=== PATIENT | female | born 1990 | race African-American/Black ===

== ENCOUNTER 2023-02-03 11:14 | Outpatient (CLI) | payer OTHER, SELFPAY ==
[2023-02-03 11:56] LABS: Basophils Absolute Auto 0.1 K/mm3 (0.0-0.1); Basophils Percent Auto 0.9 % (0.2-1.2); Eosinophils Absolute Auto 0.2 K/mm3 (0-0.3); Eosinophils Percent Auto 2.4 % (0-4.4); Hemoglobin 13.4 g/dL (12.0-15.0); Immature Granulocyte Absolute 0.02 K/mm3 (0.00-0.031); Immature Granulocyte Percent A 0.3 % (0-0.5); Immature Platelet Fraction Pct 20.4 % (0.9-11.2); Lymphocytes Absolute Auto 2.22 K/mm3 (0.9-3.2); Mean Corpuscular HGB Conc 31.2 g/dl (32-36); Mean Corpuscular Hemoglobin 28.6 pg (26-34); Mean Corpuscular Volume 91.9 fl (80-100); Mean Platelet Volume 13.8 fl (7.4-10.4); Monocytes Absolute Auto 0.5 K/mm3 (0.1-0.6); Monocytes Percent Auto 6.8 % (2.6-8.5); Neutrophils Absolute Auto 3.8 K/mm3 (1.3-6.7); Neutrophils Percent Auto 56.6 % (45.5-73.1); Platelet Count Result 188 k/mm3 (150-375); Red Blood Count 4.68 M/mm3 (4.2-5.4); Red Cell Distribution Width 13.2 % (11.5-14.5); White Blood Count 6.7 K/mm3 (4.5-10.0)
[2023-02-03 12:01] LABS: Alanine Aminotransferase 18 U/L (6-35); Albumin Level 4.7 g/dL (3.5-5.1); Alkaline Phosphatase 94 U/L (38-126); Anion Gap 9 mmol/L (8-16); Aspartate Amino Transferase 29 U/L (14-36); Bilirubin,Total 0.4 mg/dL (0.2-1.3); Blood Urea Nitrogen 8 mg/dL (7-17); Calcium 9.4 mg/dL (8.4-10.2); Carbon Dioxide 24 mmol/L (22-30); Chloride 103 mmol/L (98-107); Estimated Glomerular Filt Rate > 60; Glucose 90 mg/dL (65-110); Sodium 136 mmol/L (137-145)
[2023-02-03 12:28] LABS: Vitamin D 25 Hydroxy 30.3 ng/mL
[2023-02-03 12:40] LABS: Rubella IgG Antibody 4.8 IU/ML
[2023-02-03 12:41] LABS: HIV 1/2 Ab P24 Ag Result Negative (Negative)
[2023-02-03 13:50] LABS: Rapid Plasma Reagin Non-Reactive (NonReactive)
== END 2023-02-03 11:15 | disposition home or self-care (01) ==
PROVIDERS: Visit Provider Obstetrics & Gynecology
DX: Z31.69 Encounter for other general counseling and advice on procreation (principal)
CPT/HCPCS: 36415; 80053; 82306; 84443; 85025; 85055; 86592; 86703; 86762; 86787; 86850; 86900; 86901; G0432

== ENCOUNTER 2023-04-05 16:44 | Emergency (ER) | payer OTHER, SELFPAY ==
--- NOTE | ~2023-04-05 | US_ITS ---
CORRECTED REPORT exam description change [facility] [place] 04/06/23 This report was recreated on 04/06/23. Original report was EXAMINATION: US OB <= 14 weeks fetus w TV INDICATION: pelvic pain TECHNIQUE: Sonography of the pelvis was performed by transabdominal and transvaginal techniques. COMPARISON: None. RESULT: Uterus: 8.7 x 5.0 x 5.3 cm. Anteverted. Homogenous myometrium. Intrauterine gestational sac: Single present. Mean Sac Diameter: 1.26 cm, corresponding gestational age 6 week 1 days. Yolk sac: 0.4 cm . Embryo: Not seen. Subgestational hematoma: Absent . Right ovary: 4.2 x 2.5 x 3.4 cm. Vascular flow is present. Involuting corpus luteal cyst. Left ovary: 2.8 x 1.7 x 1.8 cm. Vascular flow is present. No adnexal mass. Pelvis free fluid: Small free fluid is likely physiologic. IMPRESSION: Single, intrauterine gestation. No pole identified at this time. Estimated Gestational Age: 6 weeks, 1 days by mean gestational sac diameter. EVON by ultrasound 11/28/2023. Reviewed, dictated and finalized at location K. MTDD IMPRESSION: Single, intrauterine gestation. No pole identified at this time. Estimated Gestational Age: 6 weeks, 1 days by mean gestational sac diameter. E DD by ultrasound 11/28/2023.
[2023-04-05 16:50] VITALS: BP 130/54; PULSE 100; RESP 18; TEMP 36.6; O2SAT 100
--- NOTE | 2023-04-05 18:30 | ED.BACK ---
HPI - Back Pain/Injury General Chief Complaint: Back Pain/Injury Stated Complaint: lower back pain, lower left pelvic pain Time Seen by Provider: 04/05/23 18:15 History of Present Illness HPI Narrative: Patient is a 32-year-old female, approximately 5 weeks by LMP of 02/24 here with multiple symptoms including lower abdominal pain, left adnexal pain and lower back pain. She notes that symptoms began a few days ago, seemed to be worsening. The pain seems to be worse on the left lower abdomen. She denies any associated vaginal bleeding. She notes she has had some clear vaginal discharge which seems to be her normal. No concern for STD. She endorses that abdominal pain seems to be cramping in nature. She has taken nothing at home for the pain. She note some increased urinary frequency, denies hematuria or dysuria. She denies complaining of some bilateral lower back pain. No red flag symptoms. No fever or chills. No trauma. she has called to schedule 1st trimester appointment with her OBGYN but has not been seen or had a 1st trimester ultrasound to this point. Related Data Allergies Allergy/AdvReac Type Severity Reaction Status Date / Time No Known Allergies Allergy Verified 02/03/23 10:15 Review of Systems Review of Systems: All systems reviewed & are unremarkable except as noted in HPI and below PMFSH Past Medical History Medical History Seasonal allergies Surgical History Surgical History [place] teeth removed Family History Family History Grandparent Diabetes mellitus Maternal grandmother Hypertension Maternal grandmother Cerebrovascular accident Maternal grandmother Social History Social History Smoking status: Never smoker Alcohol intake: current Substance use: never Lack of Transportation: No Lack of Food: Never True Current Housing: I Do Not Have Housing Concerned About Future Housing: No Difficulty Paying Gas/Electric Bills: No Difficulty Paying for Meds: No Currently Unemployed: No Education: Bachelor's Degree Difficulty w/ Childcare or Family Care: No Living arrangements: with family Occupation/Education: occupation Gender identity (if verbalized by the patient): Female Sexual Orientation (if Verbalized by the Patient): Straight or Heterosexual Spiritual care concerns: No Agree to blood products: Yes Exam Narrative: GENERAL: Well-appearing, well-nourished, and in no acute distress. HEAD: Normocephalic, atraumatic. EYES: PERRLA and EOMI. ENT: Nares clear. Mucous membranes moist. NECK: Supple. CHEST: Clear to auscultation. No respiratory distress. HEART: Regular rate and rhythm. Normal peripheral pulses. ABDOMEN: Soft, mild tenderness in the suprapubic region and left adnexa. No rebound or guarding. No CVA tenderness. EXTREMITIES: Normal range of motion. No edema. SKIN: Warm, dry, no rash. NEURO: No focal deficits. Alert and oriented x3. PSYCH: Normal mood and affect. Course Course Emergency Course: Chart review performed. Patient here with back pain and abdominal pain. about 5 weeks . Triage vitals grossly normal. Patient seen evaluated, nontoxic appearing. Concern for threatened miscarriage, ectopic , UTI. Patient denies any concern for STI. Will do lab work, UA, ultrasound, will offer pelvic exam. WBC 11.5, CMP negative. UA negative for UTI. Blood type O+ve, no need for rhogam. Pending bHCG and ultrasound. Ultrasound shows single intrauterine gestation, no pole, normal vascular flow to bilateral ovaries. Hcg 14,520. The results of pertinent diagnostic studies and exam findings were discussed. The patient?s provisional diagnosis and plan of care were dis
[2023-04-05] MEDS: ACETAMINOPHEN 325 MG TABLET 650 MG PO (18:42)
[2023-04-05 19:04] LABS: Basophils Absolute Auto 0.1 K/mm3 (0.0-0.1); Basophils Percent Auto 0.8 % (0.2-1.2); Eosinophils Absolute Auto 0.2 K/mm3 (0-0.3); Eosinophils Percent Auto 2.1 % (0-4.4); Hematocrit 41.4 % (37.0-47.0); Hemoglobin 13.1 g/dL (12.0-15.0); Immature Granulocyte Absolute 0.04 K/mm3 (0.00-0.031); Immature Granulocyte Percent A 0.3 % (0-0.5); Immature Platelet Fraction Pct 18.6 % (0.9-11.2); Lymphocytes Absolute Auto 2.82 K/mm3 (0.9-3.2); Lymphocytes Percent Auto 24.6 % (18.3-44.2); Mean Corpuscular HGB Conc 31.6 g/dl (32-36); Mean Corpuscular Hemoglobin 29.2 pg (26-34); Mean Corpuscular Volume 92.4 fl (80-100); Mean Platelet Volume 13.4 fl (7.4-10.4); Monocytes Absolute Auto 0.8 K/mm3 (0.1-0.6); Monocytes Percent Auto 6.6 % (2.6-8.5); Neutrophils Absolute Auto 7.5 K/mm3 (1.3-6.7); Neutrophils Percent Auto 65.6 % (45.5-73.1); Platelet Count Result 181 k/mm3 (150-375); Red Blood Count 4.48 M/mm3 (4.2-5.4); Red Cell Distribution Width 13.2 % (11.5-14.5); White Blood Count 11.5 K/mm3 (4.5-10.0)
[2023-04-05 19:06] LABS: Appearance Urine Clear (Clear); Bilirubin Urine Negative (Negative); Blood Urine Negative (Negative); Color Urine Yellow (Yellow); Glucose Urine UA Negative (Negative); Ketones Urine 1+ mg/dL (Negative); Leukocyte Esterase Ur Negative LEU/UL (Negative); Nitrate Urine Negative (Negative); Protein Urine Negative (Negative); Urobilinogen Urine 0.2 mg/dL (<2.0)
[2023-04-05 19:08] LABS: Add Urine Microscopic? NO
[2023-04-05 19:09] LABS: Alanine Aminotransferase 21 U/L (6-35); Albumin Level 4.8 g/dL (3.5-5.1); Alkaline Phosphatase 71 U/L (38-126); Anion Gap 10 mmol/L (8-16); Aspartate Amino Transferase 27 U/L (14-36); Bilirubin,Total 0.4 mg/dL (0.2-1.3); Blood Urea Nitrogen 9 mg/dL (7-17); Calcium 9.2 mg/dL (8.4-10.2); Carbon Dioxide 22 mmol/L (22-30); Chloride 103 mmol/L (98-107); Estimated CRCL calculation 128 ml/min; Estimated Glomerular Filt Rate > 60; Glucose 82 mg/dL (65-110); Potassium 3.7 mmol/L (3.4-5.0); Sodium 135 mmol/L (137-145)
[2023-04-05 22:11] VITALS: BP 126/68; PULSE 93; RESP 16; O2SAT 100
== END 2023-04-05 22:13 | disposition home or self-care (01) ==
PROVIDERS: Emergency Provider Student in an Organized Health Care Education/Training Program
DX: R10.30 Lower abdominal pain, unspecified (principal); M54.50 Low back pain, unspecified; O26.891 Other specified pregnancy related conditions, first trimester; Z3A.01 Less than 8 weeks gestation of pregnancy
CPT/HCPCS: 36415; 76801; 76817; 80053; 81003; 84702; 85025; 85055; 86850; 86900; 86901; 99284; A9270

== ENCOUNTER 2023-04-27 10:15 | Outpatient (CLI) | payer OTHER, SELFPAY ==
--- NOTE | ~2023-04-27 | US_ITS ---
EXAMINATION: US OB <= 14 weeks fetus DATE: 04/27/2023 10:37 INDICATION: First trimester with inconclusive viability TECHNIQUE: Real-time pelvic ultrasound utilizing transabdominal probe was performed. The esau walker radiologist was not present for the study. COMPARISON: None. FINDINGS: The uterus measures 10.0 x 7.2 x 5.9 cm. There is an intrauterine gestational sac. A yolk sac and fe lavinia pole are identified. The crown rump length measures 2.1 cm, which correlates with an estimated ge stational age of 8 weeks and 5 days. heart motion is identified measuring 178 beats per minute (bpm) by M-mode Doppler. The right ovary measures 3.8 x 1.8 x 2.2 with internal vascular flow on color Doppler. The left ovary is not visualized. There is no free fluid in the pelvis. IMPRESSION: 1. Single living fetus with heart rate of 178 bpm. 2. Gestational age by ultrasound of 8 weeks 5 day(s) +/- 5 day(s) with ultrasound estimated date of delivery (EVON) of 12/02/2023. Reviewed, dictated and finalized at location A. IMPRESSION: 1. Single living fetus with heart rate of 178 bpm. 2. Gestational age by ultrasound of 8 weeks 5 day(s) +/- 5 day(s) with ultraso und estimated date of delivery (EVON) of 12/02/2023.
== END 2023-04-27 10:16 ==
PROVIDERS: PCP Obstetrics & Gynecology; Visit Provider Registered Nurse
DX: O36.80X0 Pregnancy with inconclusive fetal viability, not applicable or unspecified (principal); Z3A.08 8 weeks gestation of pregnancy
CPT/HCPCS: 76801

== ENCOUNTER 2023-06-11 13:21 | Outpatient (CLI) | payer OTHER, SELFPAY ==
[2023-06-11 14:25] LABS: Hematocrit 36.7 % (37.0-47.0); Hemoglobin 12.3 g/dL (12.0-15.0); Mean Corpuscular HGB Conc 33.5 g/dl (32-36); Mean Corpuscular Hemoglobin 29.3 pg (26-34); Mean Corpuscular Volume 87.4 fl (80-100); Mean Platelet Volume 13.9 fl (7.4-10.4); Platelet Count Result 176 k/mm3 (150-375); Red Cell Distribution Width 13.3 % (11.5-14.5); White Blood Count 11.6 K/mm3 (4.5-10.0)
[2023-06-11 14:36] LABS: Appearance Urine Cloudy (Clear); Bacteria Urine 2+ /hpf; Bilirubin Urine Negative (Negative); Blood Urine Negative (Negative); Color Urine Yellow (Yellow); Glucose Urine UA Negative (Negative); Ketones Urine Trace mg/dL (Negative); Leukocyte Esterase Ur Trace LEU/UL (NEGATIVE); Nitrate Urine Negative (Negative); Non Pathogenic Casts 0-2; Protein Urine Negative (Negative); RBC Urine 0-2 /hpf (0-2); Specific Grav Ur 1.026 (1.001-1.035); Squamous Epithelial Cell Urine Moderate /hpf (Few); Urobilinogen Urine 0.2 mg/dL (<2.0)
[2023-06-11 14:40] LABS: Add Urine Microscopic? YES
[2023-06-11 15:16] LABS: HIV 1/2 Ab P24 Ag Result Negative (Negative)
[2023-06-11 15:30] LABS: Hepatitis B Surface Antigen Negative (Negative); Rubella IgG Antibody 2.9 IU/ML
[2023-06-11 15:41] LABS: Hepatitis C Virus Antibody Negative (Negative)
[2023-06-14 13:17] LABS: Rapid Plasma Reagin Non-Reactive (NonReactive)
[2023-06-15 16:48] LABS: Hematocrit 37.5 % (35.0-45.0); Hemoglobin 12.4 g/dL (11.7-15.5); MCH 29.8 pg (27.0-33.0); MCV 90.1 fL (80.0-100.0); RDW 13.4 % (11.0-15.0); Red Blood Cell Count 4.16 Mill/uL (3.80-5.10)
== END 2023-06-11 13:22 | disposition home or self-care (01) ==
LOC: ANHLAB 13:22
PROVIDERS: PCP Obstetrics & Gynecology; Visit Provider Obstetrics & Gynecology
DX: Z34.91 Encounter for supervision of normal pregnancy, unspecified, first trimester (principal)
CPT/HCPCS: 36415; 81001; 83021; 84443; 85027; 86592; 86703; 86762; 86787; 86803; 86850; 86900; 86901; 87086; 87088; 87340; G0432

== ENCOUNTER 2023-09-23 10:47 | Outpatient (CLI) | payer OTHER, SELFPAY ==
[2023-09-23 13:29] LABS: Basophils Absolute Auto 0.1 K/mm3 (0.0-0.1); Basophils Percent Auto 0.5 % (0.2-1.2); Eosinophils Absolute Auto 0.2 K/mm3 (0-0.3); Eosinophils Percent Auto 1.3 % (0-4.4); Hematocrit 36.3 % (37.0-47.0); Hemoglobin 11.5 g/dL (12.0-15.0); Immature Granulocyte Absolute 0.16 K/mm3 (0.00-0.031); Immature Granulocyte Percent A 1.3 % (0-0.5); Immature Platelet Fraction Pct 18.4 % (0.9-11.2); Lymphocytes Absolute Auto 1.85 K/mm3 (0.9-3.2); Lymphocytes Percent Auto 14.5 % (18.3-44.2); Mean Corpuscular HGB Conc 31.7 g/dl (32-36); Mean Corpuscular Hemoglobin 29.8 pg (26-34); Mean Platelet Volume 13.5 fl (7.4-10.4); Monocytes Absolute Auto 0.8 K/mm3 (0.1-0.6); Monocytes Percent Auto 6.5 % (2.6-8.5); Neutrophils Absolute Auto 9.7 K/mm3 (1.3-6.7); Neutrophils Percent Auto 75.9 % (45.5-73.1); Platelet Count Result 158 k/mm3 (150-375); Red Blood Count 3.86 M/mm3 (4.2-5.4); Red Cell Distribution Width 13.2 % (11.5-14.5); White Blood Count 12.8 K/mm3 (4.5-10.0)
[2023-09-23 13:44] LABS: Glucose 1 Hour PP 50gm Dose 133 mg/dL
== END 2023-09-23 10:48 | disposition home or self-care (01) ==
LOC: ANHLAB 10:48
PROVIDERS: PCP Obstetrics & Gynecology; Visit Provider Nurse Practitioner Family
DX: Z34.00 Encounter for supervision of normal first pregnancy, unspecified trimester (principal)
CPT/HCPCS: 36415; 82947; 85025; 85055

== ENCOUNTER 2023-10-01 07:08 | Outpatient (CLI) | payer OTHER, SELFPAY ==
[2023-10-01 07:48] LABS: Glucose Fasting Gestational 104 mg/dL (>/=95)
[2023-10-01 09:36] LABS: Glucose 1 Hour Gest 150 mg/dL (>/=180)
[2023-10-01 10:54] LABS: Glucose 2 Hour Gest 132 mg/dL (>/= 155)
[2023-10-01 11:41] LABS: Glucose 3 Hour Gest 122 mg/dL (>/=140)
== END 2023-10-01 07:09 | disposition home or self-care (01) ==
LOC: ANHLAB 07:10
PROVIDERS: Visit Provider Nurse Practitioner Family
DX: O99.810 Abnormal glucose complicating pregnancy (principal); Z3A.00 Weeks of gestation of pregnancy not specified
CPT/HCPCS: 36415; 82951; 82952

== ENCOUNTER 2023-10-21 10:39 | Outpatient (CLI) | payer OTHER, SELFPAY ==
--- NOTE | 2023-10-27 16:04 | WPDHOLTEREM ---
Holter/Event Monitor Holter/Event Monitor Date of procedure: 10/21/23 Holter/Event Procedure: 24 Hr Holter Monitor Indications: Palpitations Conclusion: 1. 24 hour holter monitor on 10/21/23. 2. Underlying rhythm is sinus rhythm. HR range 64-141 bpm; average HR 87 bpm. HR at 141 bpm was at 11:30. 3. There are 3 premature supraventricular complexes. No supraventricular tachycardia. 4. There is 1 premature ventricular complex. No ventricular tachycardia. 5. No sinoatrial or atrioventricular blocks. No significant pauses greater than 2 seconds. 6. Patient reports symptoms of shortness of breath and skip beats which demonstrate sinus rhythm, HR range 76-80 bpm.
== END 2023-10-21 10:40 | disposition home or self-care (01) ==
LOC: ANHCARD 10:44
PROVIDERS: Visit Provider Obstetrics & Gynecology
DX: R00.2 Palpitations (principal)
CPT/HCPCS: 93225; 93226

== ENCOUNTER 2023-10-26 11:44 | Outpatient (CLI) | payer OTHER, SELFPAY ==
[2023-10-26 12:03] LABS: Mean Corpuscular HGB Conc 32.4 g/dl (32-36); Mean Corpuscular Hemoglobin 30.1 pg (26-34); Mean Corpuscular Volume 92.7 fl (80-100); Platelet Count Result 152 k/mm3 (150-375); Red Blood Count 3.99 M/mm3 (4.2-5.4); Red Cell Distribution Width 13.3 % (11.5-14.5); White Blood Count 12.2 K/mm3 (4.5-10.0)
[2023-10-26 12:53] LABS: HIV 1/2 Ab P24 Ag Result Negative (Negative)
[2023-10-27 09:11] LABS: Rapid Plasma Reagin Non-Reactive (NonReactive)
== END 2023-10-26 11:45 | disposition home or self-care (01) ==
LOC: ANHLAB 11:46
PROVIDERS: Visit Provider Obstetrics & Gynecology
DX: Z34.90 Encounter for supervision of normal pregnancy, unspecified, unspecified trimester (principal); Z3A.00 Weeks of gestation of pregnancy not specified
CPT/HCPCS: 36415; 85027; 86592; 86703; G0432

== ENCOUNTER 2023-11-11 10:03 | Outpatient (CLI) | payer OTHER, SELFPAY ==
--- NOTE | ~2023-11-11 | US_ITS ---
EXAMINATION: US OB limited w BPP DATE: 11/11/2023 12:29 INDICATION: Nonreactive nonstress test. Assess amniotic fluid index. TECHNIQUE: Real-time pelvic ultrasound was performed. The interpreting radiologist was not present fo r the study. COMPARISON: None. FINDINGS: There is a single living fetus in vertex presentation. The placenta is anterior with a very hypoecho ic central venous loomis. heart rate is 11.5 beats per minute (bpm). (5th%-95%: 7.5-24.4 cm at T7 weeks estimated gestational age) . Biophysical profile performed by the technologist: breathing (30 sec sustained breathing in 30 minutes): 2 out of 2 movement (3 gross body movements in 30 minutes): 2 out of 2 tone (one episode of umngfly-xjpxeuemd-gvmfdpj limb movement): 2 out of 2 Amniotic fluid pocket (2 cm): 2 out of 2 Total score: 8 out of 8 IMPRESSION: 1. Single living fetus in vertex presentation with heart rate of 144 bpm. 2. Biophysical profile 8 out of 8. Reviewed, dictated and finalized at location A.
[2023-11-11 11:42] VITALS: RESP 18; TEMP 36.2
[2023-11-11 11:44] VITALS: BP 110/86; PULSE 88
[2023-11-11 12:43] VITALS: BP 125/73; PULSE 79
[2023-11-11 13:04] VITALS: BP 125/73; PULSE 79
== END 2023-11-11 13:10 | disposition home or self-care (01) ==
LOC: ANHOBOP 11:14 → ANHLDR 11:14
PROVIDERS: Visit Provider Obstetrics & Gynecology
DX: O41.8X90 Other specified disorders of amniotic fluid and membranes, unspecified trimester, not applicable or unspecified (principal); Z3A.00 Weeks of gestation of pregnancy not specified
CPT/HCPCS: 59025; 76815; 76819; 84112; 99199

== ENCOUNTER 2023-11-24 14:37 | Observation (INO) | payer OTHER, SELFPAY ==
--- NOTE | ~2023-11-24 | US_ITS ---
EXAMINATION: US OB limited DATE: 11/24/2023 15:52 INDICATION: . Third trimester. Leaking fluid. TECHNIQUE: Real-time ultrasound of the pelvis was performed. COMPARISON: Ultrasound 11/11/2023 FINDINGS: There is a single fetus in vertex presentation. The placenta is anterior. heart rate is 137 be ats per minute (bpm). The amniotic fluid index is 13.2 cm, which is normal. IMPRESSION: 1. Single living fetus in vertex presentation. 2. Normal amniotic fluid index. Reviewed, dictated and finalized at location A.
--- NOTE | 2023-11-24 14:55 | PC.NURSE ---
Bloody show noted on swab for ROM plus test. Fluid placed in cassette is light red.
[2023-11-24 16:33] VITALS: BMI 35.7
--- NOTE | 2023-11-24 16:34 | OBADM ---
This patient, Katie Syed, admitted to the OB room Labor/Delivery/Recovery 105 for observation. Patient/family oriented to hospital policies and general routines including ID bracelet, bed and alarms, visiting hours, pain management, procedures, bathroom and other care routines, personal items, smoking policy, room service/diet, and visiting hours. Patient/Family are encouraged to report perceived risks to care and to ask questions if they do not understand what they are told or what they should do.
--- NOTE | 2023-12-06 09:50 | PM.OBTRLD ---
OB - Triage/Final Diagnosis Visit Information Comments/Additional reasons for admission: I have assessed the risk for this patient, Katie Syed, and determined that she would benefit from observation care. Final Diagnosis (1) False labor: Code(s): O47.9 - False labor, unspecified Status: Acute
== END 2023-11-24 17:11 | disposition home or self-care (01) ==
PROVIDERS: Admitting Provider Obstetrics & Gynecology; Visit Provider Obstetrics & Gynecology
DX: O47.1 False labor at or after 37 completed weeks of gestation (principal); Z3A.39 39 weeks gestation of pregnancy
CPT/HCPCS: 76815; 84112; G0378; G0379

== ENCOUNTER 2023-11-30 06:33 | Inpatient (IN) | payer OTHER, SELFPAY ==
[2023-11-24 16:27] VITALS: BP 123/76; PULSE 87
[2023-11-24 16:30] VITALS: BP 120/68; PULSE 87; RESP 18; TEMP 36.9
[2023-11-30] VITALS (199 sets, daily range): BP systolic 69–158; BP diastolic 19–131; PULSE 59–245; TEMP 36.4–36.6; O2SAT 77–100; BMI 35.8
[2023-11-30 07:35] LABS: Basophils Percent Auto 0.2 % (0.2-1.2); Eosinophils Absolute Auto 0.2 K/mm3 (0-0.3); Eosinophils Percent Auto 1.3 % (0-4.4); Hematocrit 36.6 % (37.0-47.0); Immature Granulocyte Absolute 0.08 K/mm3 (0.00-0.031); Immature Granulocyte Percent A 0.6 % (0-0.5); Immature Platelet Fraction Pct 21.4 % (0.9-11.2); Lymphocytes Absolute Auto 1.89 K/mm3 (0.9-3.2); Lymphocytes Percent Auto 15.3 % (18.3-44.2); Mean Corpuscular HGB Conc 32.8 g/dl (32-36); Mean Corpuscular Hemoglobin 29.9 pg (26-34); Monocytes Absolute Auto 0.8 K/mm3 (0.1-0.6); Monocytes Percent Auto 6.7 % (2.6-8.5); Neutrophils Absolute Auto 9.4 K/mm3 (1.3-6.7); Neutrophils Percent Auto 75.9 % (45.5-73.1); Platelet Count Result 142 k/mm3 (150-375); Red Blood Count 4.02 M/mm3 (4.2-5.4); Red Cell Distribution Width 14.3 % (11.5-14.5); White Blood Count 12.4 K/mm3 (4.5-10.0)
--- NOTE | 2023-11-30 07:37 | LDADM ---
This patient, Katie Syed, was admitted to Labor/Delivery/Recovery 107 on 11/30/23 at 06:33. Plans for labor, pain management and were discussed with patient. Patient/family oriented to hospital policies and general routines including ID bracelet, bed and alarms, visiting hours, pain management, procedures, bathroom and other care routines, personal items, smoking policy, room service/diet and guest tray routines, security routines, and visiting hours. Patient/Family are encouraged to report perceived risks to care and to ask questions if they do not understand what they are told or what they should do. See OBIX for further documentation.
[2023-11-30 07:44] LABS: Alanine Aminotransferase 27 U/L (6-35); Albumin Level 3.6 g/dL (3.5-5.1); Alkaline Phosphatase 150 U/L (38-126); Anion Gap 6 mmol/L (4-12); Aspartate Amino Transferase 33 U/L (14-36); Bilirubin,Total 0.3 mg/dL (0.2-1.3); Blood Urea Nitrogen 7 mg/dL (7-17); Calcium 9.4 mg/dL (8.4-10.2); Carbon Dioxide 19 mmol/L (22-30); Chloride 108 mmol/L (98-107); Estimated Glomerular Filt Rate > 60; Glucose 115 mg/dL (65-110); Potassium 3.7 mmol/L (3.4-5.0); Sodium 133 mmol/L (137-145)
[2023-11-30] MEDS: miSOPROStol 25 MCG TABLET 50 MCG SUBLINGUAL (08:13)
[2023-11-30] MEDS: ACETAMINOPHEN 500 MG TABLET 1000 MG PO (08:52)
[2023-11-30 09:33] LABS: HIV 1/2 Ab P24 Ag Result Negative (Negative)
--- NOTE | 2023-11-30 10:55 | PM.IMHP ---
H&P: HPI History of Present Illness Date/Time: 11/30/23 10:55 Chief Complaint: Induction of labor. Narrative: See record. Uncomplicated. Review of Systems Review of Systems: All systems reviewed & are unremarkable except as noted in HPI and below Constitutional: Constitutional: Reports no additional constitutional complaints and Denies headache(s) Eyes: Eyes: Denies spots in vision ENT: Reports system reviewed and no additional complaints, except as documented and Denies headache(s) Cardiovascular: Cardiovascular: Denies chest pain and Denies dyspnea Respiratory: Respiratory: Denies dyspnea Gastrointestinal: Gastrointestinal: Reports no additional gastrointestinal complaints Genitourinary: Genitourinary: Reports amenorrhea Musculoskeletal: Musculoskeletal: Reports no additional musculoskeletal complaints Integumentary/Breasts: Skin/Breast: Denies breast mass and Denies rash Neurologic: Denies headache(s) Psychiatric: Psychiatric: Reports no additional psychiatric complaints [facility] Past Medical History Medical History (Updated 12/02/23 @ 09:58 by Panfilo Anderson MD) HSV (herpes simplex virus) anogenital infection Obesity (BMI 30-39.9) Seasonal allergies Surgical History Surgical History [place] teeth removed Family History Family History Grandparent Diabetes mellitus Maternal grandmother Hypertension Maternal grandmother Cerebrovascular accident Maternal grandmother Mother Crohn's disease Father Prostate carcinoma Social History Social History Smoking status: Never smoker Alcohol intake: current Substance use: never Do You Feel Safe in your Home?: Yes Lack of Transportation: No Lack of Food: Never True Current Housing: I Have Housing Concerned About Future Housing: No Difficulty Paying Gas/Electric Bills: No Difficulty Paying for Meds: No Currently Unemployed: No Education: Bachelor's Degree Difficulty w/ Childcare or Family Care: No Living arrangements: with family Occupation/Education: occupation Gender identity (if verbalized by the patient): Female Sexual Orientation (if Verbalized by the Patient): Straight or Heterosexual Spiritual care concerns: No (Denominational) Agree to blood products: Yes Meds Home Medications and Allergies Home Medications Medication Instructions Recorded Confirmed Type vits 75-iron 28 mg-folic 1 pkg PO DAILY 04/27/23 11/30/23 History acid 800 mcg-omega3 440 mg oral pack (One Daily ) valacyclovir 500 mg tablet 500 mg PO DAILY #30 tabs 11/11/23 11/30/23 Rx (Valtrex) Allergies Allergy/AdvReac Type Severity Reaction Status Date / Time No Known Allergies Allergy Verified 11/24/23 14:04 Vital Signs Vital Signs - 24 hr 11/30/23 07:20 11/30/23 07:30 11/30/23 07:46 Temperature Pulse Rate 89 85 87 Blood Pressure 126/81 126/87 135/77 Oxygen Delivery 11/30/23 08:01 11/30/23 08:15 11/30/23 08:31 Temperature Pulse Rate 82 92 81 Blood Pressure 127/87 127/96 H 130/78 Oxygen Delivery 11/30/23 08:00 11/30/23 08:46 11/30/23 09:00 Temperature 97.5 F L Pulse Rate 102 H 113 H Blood Pressure 113/75 124/105 H Oxygen Delivery 11/30/23 09:16 11/30/23 09:31 11/30/23 09:46 Temperature Pulse Rate 83 86 77 Blood Pressure 127/90 121/55 L 125/71 Oxygen Delivery 11/30/23 10:01 11/30/23 10:16 11/30/23 10:31 Temperature Pulse Rate 86 89 86 Blood Pressure 124/75 116/67 69/55 L Oxygen Delivery 11/30/23 10:46 11/30/23 07:31 11/30/23 09:17 Temperature Pulse Rate 88 83 Blood Pressure 126/77 127/90 Oxygen Delivery Room Air Exam Const: General: no acute distress Eyes: General: appearance normal, both eyes and all related structu
--- NOTE | 2023-11-30 12:41 | P.PNOB_ITS ---
OB - PN: Subj Subjective Date/time seen: 11/30/23 12:41 Interval history: fht 135, Pt had ? leaking, on exam, gross rupture, cervix 2.5/75/-2. Continue expectant management. OB - PN: Obj Data Labs 11/30/23 07:21 11/30/23 07:21 Labs: Laboratory Results - last 24 hr 11/30/23 07:21 WBC 12.4 H RBC 4.02 L Hgb 12.0 Hct 36.6 L MCV 91.0 MCH 29.9 MCHC 32.8 RDW 14.3 Plt Count 142 L MPV 14.0 H Immature Gran % (Auto) 0.6 H Neut % (Auto) 75.9 H Lymph % (Auto) 15.3 L [place] % (Auto) 6.7 Eos % (Auto) 1.3 Baso % (Auto) 0.2 Lymph # (Auto) 1.89 [place] # (Auto) 0.8 H Eos # (Auto) 0.2 Baso # (Auto) 0.0 Abs Immat Gran (auto) 0.08 H Absolute Neuts (auto) 9.4 H Absolute Nucleated RBC 0.000 Nucleated RBC % 0.0 % Immature Plt Fraction 21.4 H Sodium 133 L Potassium 3.7 Chloride 108 H Carbon Dioxide 19 L Anion Gap 6 BUN 7 Creatinine 0.50 L Estim Creat Clear Calc Not Reportable Estimated GFR > 60 Glucose 115 H Uric Acid 4.0 Calcium 9.4 Total Bilirubin 0.3 AST 33 ALT 27 Alkaline Phosphatase 150 H Total Protein 7.0 Albumin 3.6 HIV 1&2 Ab/P24 Ag 4thGn Negative Blood Type O Positive Antibody Screen Negative OB - PN A/P Time Spent With Patient Time: Total time spent is greater than 50% in coordination of care (as documented) at patient's floor/unit and/or counseling patient:
--- NOTE | 2023-11-30 13:08 | WPDANESEPP ---
Anes - Eval Pre Procedure Procedure: LABOR EPIDURAL Date/Time: 11/30/23 13:08 Surgeon: vania Preop Diagnosis: pain during labor Pre Op Diagnosis: Induction of Labor Patient Data Age: 33 Gender: F Height: 1.78 m Weight: 113.2 kg Last Vital Signs Temp 36.4 C L 11/30/23 12:25 Pulse 70 11/30/23 12:16 Resp 18 11/24/23 16:30 BP 119/65 11/30/23 12:16 O2 Del Method Room Air 11/30/23 07:31 Allergies Allergy/AdvReac Type Severity Reaction Status Date / Time No Known Allergies Allergy Verified 11/24/23 14:04 Home Medications Medication Instructions Recorded Confirmed Type vits 75-iron 28 mg-folic 1 pkg PO DAILY 04/27/23 11/30/23 History acid 800 mcg-omega3 440 mg oral pack (One Daily ) valacyclovir 500 mg tablet 500 mg PO DAILY #30 tabs 11/11/23 11/30/23 Rx (Valtrex) Laboratory Tests 11/30/23 07:21 WBC 12.4 H K/mm3 (4.5-10.0) RBC 4.02 L M/mm3 (4.2-5.4) Hgb 12.0 g/dL (12.0-15.0) Hct 36.6 L % (37.0-47.0) MCV 91.0 fl (80-100) MCH 29.9 pg (26-34) MCHC 32.8 g/dl (32-36) RDW 14.3 % (11.5-14.5) Plt Count 142 L k/mm3 (150-375) MPV 14.0 H fl (7.4-10.4) Immature Gran % (Auto) 0.6 H % (0-0.5) Neut % (Auto) 75.9 H % (45.5-73.1) Lymph % (Auto) 15.3 L % (18.3-44.2) [place] % (Auto) 6.7 % (2.6-8.5) Eos % (Auto) 1.3 % (0-4.4) Baso % (Auto) 0.2 % (0.2-1.2) Lymph # (Auto) 1.89 K/mm3 (0.9-3.2) [place] # (Auto) 0.8 H K/mm3 (0.1-0.6) Eos # (Auto) 0.2 K/mm3 (0-0.3) Baso # (Auto) 0.0 K/mm3 (0.0-0.1) Abs Immat Gran (auto) 0.08 H K/mm3 (0.00-0.031) Absolute Neuts (auto) 9.4 H K/mm3 (1.3-6.7) Absolute Nucleated RBC 0.000 K/mm3 (0.0-0.012) Nucleated RBC % 0.0 % (0.0-0.2) % Immature Plt Fraction 21.4 H % (0.9-11.2) Sodium 133 L mmol/L (137-145) Potassium 3.7 mmol/L (3.4-5.0) Chloride 108 H mmol/L (98-107) Carbon Dioxide 19 L mmol/L (22-30) Anion Gap 6 mmol/L (4-12) BUN 7 mg/dL (7-17) Creatinine 0.50 L mg/dL (0.7-1.0) Estim Creat Clear Calc Not Reportable Estimated GFR > 60 (59 - ) Glucose 115 H mg/dL (65-110) Uric Acid 4.0 mg/dL (2.5-7.5) Calcium 9.4 mg/dL (8.4-10.2) Total Bilirubin 0.3 mg/dL (0.2-1.3) AST 33 U/L (14-36) ALT 27 U/L (6-35) Alkaline Phosphatase 150 H U/L (38-126) Total Protein 7.0 g/dL (6.3-8.2) Albumin 3.6 g/dL (3.5-5.1) RPR Pending HIV 1&2 Ab/P24 Ag 4thGn Negative (Negative) Blood Type O Positive Antibody Screen Negative Patient hx anesthesia problems: none Family hx anesthesia problems: none Results Review: All pre-operative results and documents have been reviewed as part of the pre-operative evaluation. [facility] Past Medical History Medical History (Updated 11/30/23 @ 13:09 by Ijeoma Marcus CRNA) HSV (herpes simplex virus) anogenital infection Obesity (BMI 30-39.9) Seasonal allergies Surgical History Surgical History [place] teeth removed Family History Family History Grandparent Diabetes mellitus Maternal grandmother Hypertension Maternal grandmother Cerebrovascular accident Maternal grandmother Mother Crohn's disease Father Prostate carcinoma Social History Social History Smoking status: Never smoker Alcohol intake: current Substance use: never Do You Feel Safe in your Home?: Yes Lack of Transportation: No Lack of Food: Never True Current Housing: I Have Housing Concerned About Future Housing: No Difficulty Paying Gas/Electric Bills: No Difficulty Paying for Meds: No Currently Unemployed: No Education: Bachelor's Degree Difficulty w/ Childcare or F
[2023-11-30] MEDS: LACTATED RINGERS 1,000 ML 125 ML IV CONT ×3 (13:30→23:15)
[2023-11-30 13:42] LABS: Rapid Plasma Reagin Non-Reactive (NonReactive)
[2023-11-30] MEDS: OXYTOCIN 30 UNITS/NS 500 ML 30 UNITS/500 ML BAG IV CONT (16:09)
[2023-12-01] VITALS (56 sets, daily range): BP systolic 113–145; BP diastolic 53–95; PULSE 65–115; RESP 16–18; TEMP 36.6–37.4; O2SAT 94–100
[2023-12-01] MEDS: OXYTOCIN 30 UNITS/NS 500 ML 30 UNITS/500 ML BAG 999 UNITS IV CONT (01:00)
[2023-12-01] MEDS: OXYTOCIN 30 UNITS/NS 500 ML 30 UNITS/500 ML BAG 125 UNITS IV CONT (01:30)
--- NOTE | 2023-12-01 03:18 | OBPPTRN ---
Patient transferred to post room #286 via wheelchair. Support person- FOB present. Oriented to unit, room, information board, rooming in, admission packet and security measures. Patient verbalizes understanding.
[2023-12-01] MEDS: ACETAMINOPHEN 325 MG TABLET 650 MG (05:40)
[2023-12-01] MEDS: IBUPROFEN 600 MG TABLET (05:40)
[2023-12-01] MEDS: DOCUSATE SODIUM 100 MG CAPSULE PO ×2 (09:05→17:44)
[2023-12-01] MEDS: MULTIVIT/MIN/PREN/FOL AC/IRON TABLET 1 TAB PO (09:05)
--- NOTE | 2023-12-01 12:41 | PC.NURSE ---
[id number] Introductions were made, then consulted with patient to assess needs related to . Discussed with mother her?plans to feed?her infant and the?experience so far. Encouraged understanding of the benefits of skin to skin (demonstrating unwrapping infant and placing upright on her chest), stimulating with massage touch, changing positions to encourage wakefulness, how to watch for early feeding cues, responsive feeding, feeding on demand (aiming for 8-12 times in 24 hours, about every 2-3 hours), milk production, building/maintaining a milk supply, duration of feeding, signs of adequate intake/output and how to record on the feeding sheet. Demonstrated stimulating to wake and placed upright on parent's chest/breast. Shared the handout for visualizing feeding cues. Parents encouraged to eat their breakfast, then call if infant demonstrates feeding cues, doesn't wake up, or does or doesn't latch without pain. Resources provided for inpatient and outpatient services with the feeding sheet, mom/baby guide and name written on the communication board. Mother voiced understanding of information and will call if there is a request for assistance. Reported to the Primary RN. [id number] rounded to assess for needs since parents have not call for assistance. Parents share that did not breastfeed, is sleepy and will not wake to breastfeed. Empowered parents with massage touching , changing positioning, talking and reviewed being assertive with working with infant to not allow sleeping through opportunities. Once demonstrated feeding cues, then infant was brought to the right breast using the football positioning per mothers request. Reviewed positioning and ear, shoulder, hip alignment, supporting the breast to facilitate a deep latch, asymmetrical latch (off-center), leading with the chin with a big, open, wide gape and body close to mother. Infant latched optimally to the right breast in football position. Education given to the mother of how to visualize the suckling (with good rocking jaw motion), swallows (dropping of the lower jaw) and how to listen for drinking at the breast (the ka sound) which demonstrated. Infant was able to maintain latch without pain to mother protecting the nipple with optimal positioning and latching. Reviewed comfort measures of healing with a warm, wet washcloth to rinse breast, then leave open to air-dry, good handwashing when or touching the breast/nipples to prevent infection. Mother voiced understanding of skin to skin, stimulating with massage touch, responsive feedings, hand expressed colostrum, hand expression, talking to infant to encourage if it has been 2 -2.5 hours since the start of the last , to call if infant does not latch, or if there is discomfort with . Resources used for education were facilitated with the visual educational handouts/ tool/mom and baby guide. Inpatient/outpatient resources provided with feeding sheet, name written on the communication board to use with the call light, and the mom/baby guide. Parents voiced understanding of information, demonstrated learning and will call if there is a request for assistance. Reported to the Primary RN.
[2023-12-01] MEDS: IBUPROFEN 600 MG TABLET PO ×2 (13:20→20:58)
--- NOTE | 2023-12-01 14:09 | PC.NURSE ---
1350 - Purposefully rounded to assess for needs. Mother verbalizes she is able to independently latch infant without pain at 1300 for 30 minutes. She is responsively . Mother declines any additional assistance or education at this time. Mother is encouraged to call for assistance if her doesn?t latch, pain with latching, questions or concerns. Mother voiced understanding of information shared along with the mom/baby guide for an additional resource. Reported to the Primary RN.
[2023-12-02 04:41] LABS: Hematocrit 32.2 % (37.0-47.0); Hemoglobin 10.3 g/dL (12.0-15.0)
--- NOTE | 2023-12-02 07:57 | WPDANLDPN2 ---
Anes-Prog Note L&D Date/Time: 12/02/23 07:57 Comfortable throughout: labor and delivery Neuraxial method: epidural Epidural/Spinal procedure site: clean & non-tender Neuro status: Neuro function grossly intact. Cardiovascular status: normal Respiratory status: normal Airway patency: baseline Mental status: baseline Post-Op hydration status: normal Vital Signs: Last Vital Signs Temp 36.8 C 12/01/23 20:50 Pulse 86 12/01/23 20:50 Resp 18 12/01/23 20:50 BP 119/79 12/01/23 20:50 Pulse Ox 100 12/01/23 20:50 O2 Del Method Room Air 12/01/23 17:15 Pain score (VAS): 3/10 Post-procedural complaints: none Patient feedback: Patient satisfied with anesthetic care.
[2023-12-02 08:40] VITALS: BP 128/80; PULSE 87; RESP 16; TEMP 36.6; O2SAT 98
[2023-12-02] MEDS: SIMETHICONE 80 MG TAB.CHEW PO ×2 (09:12→15:43)
[2023-12-02] MEDS: MULTIVIT/MIN/PREN/FOL AC/IRON TABLET 1 TAB PO (09:12)
[2023-12-02] MEDS: IBUPROFEN 600 MG TABLET PO ×3 (09:12→22:40)
[2023-12-02] MEDS: DOCUSATE SODIUM 100 MG CAPSULE PO (09:12)
--- NOTE | 2023-12-02 10:56 | P.PCNOB_ITS ---
OB - Vaginal Delivery Note Procedure Delivery date: 12/02/23 Induction method: Per Misoprostol Protocol Delivery monitor: External FHT and Internal Uterine Route of delivery: Laceration Description: Perineal - 2nd Degree Delivery repair: vicryl (3.0 vicryl) Specimen: No Quantitative Blood Loss (ml): 150 Anesthesia type: Epidural Disposition: Floor Complications: No immediate complications [place] Baby Date of : 12/01/23 Time of : 00:36 Weeks of gestation at delivery: 40 Infant gender: Male Weight (pounds): 9 Weight (ounces): 0 presentation: vertex Placenta delivery description: Spontaneous Cord Vessel Description: 3 Vessels score one minute: 6 score five minutes: 9
--- NOTE | 2023-12-02 12:39 | PM.OBPNVD ---
OB - PN: Subj Subjective Date/time seen: 12/02/23 12:39 Interval history: fht 135, Pt had ? leaking, on exam, gross rupture, cervix 2.5/75/-2. Continue expectant management. Patient comments: pain well controlled, tolerating diet and other (Decreasing lochia.) [place] baby status: doing well and nursing well feeding status: exclusively breast feeding OB - PN: Obj Data Labs 12/02/23 03:33 11/30/23 07:21 Labs: Laboratory Results - last 24 hr 12/02/23 03:33 Hgb 10.3 L Hct 32.2 L OB - PN A/P Plan day: 1 Plan: routine care Comments: Patient doing well. Time Spent With Patient Time: Total time spent is greater than 50% in coordination of care (as documented) at patient's floor/unit and/or counseling patient: Exam Psych: Affect: normal affect Other: Abd: fundus firm below umbilicus, nontender Perineum: healing Ext: nontender
[2023-12-02 12:57] VITALS: BP 127/58; PULSE 74; RESP 16; TEMP 36.2; O2SAT 98
--- NOTE | 2023-12-02 14:38 | PC.NURSE ---
1015 - Purposefully rounded to assess for needs. Parents are resting and shares it is about time eats. Infant has not fed since 0425 and before that was an attempt in the 0300 hour, then breastfed in the 2300 hour. Reviewed milk production, keeping fed, with good output, reduce the amount of weight loss and preventing jaundice that needs to be treated with waking infant and frequently. Demonstrated waking, stimulating, changing a stool diaper and a heal warmer placed on the heel to check the blood sugar. [id number] Blood sugar resulted in 65mg/dl. Infant is sleepy and reluctant to breastfeed at this time with no feeding cues or rooting. Infant placed upright [id number] on mother's chest/breast. Parents instructed to call out for assistance when there's feeding cues, if doesn't wake to feed, or there's pain with . Parents voiced understanding and Honey HERNANDEZ is present in the room.
[2023-12-02] MEDS: ACETAMINOPHEN 325 MG TABLET 650 MG PO ×2 (15:42→22:40)
[2023-12-02 22:44] VITALS: BP 122/79; PULSE 76; RESP 18; TEMP 36.6; O2SAT 99
[2023-12-03 07:45] VITALS: BP 125/81; PULSE 77; RESP 16; TEMP 36.9; O2SAT 99
[2023-12-03] MEDS: DOCUSATE SODIUM 100 MG CAPSULE PO (07:56)
[2023-12-03] MEDS: MULTIVIT/MIN/PREN/FOL AC/IRON TABLET 1 TAB PO (07:56)
[2023-12-03] MEDS: IBUPROFEN 600 MG TABLET PO (07:56)
[2023-12-03] MEDS: ACETAMINOPHEN 325 MG TABLET 650 MG PO (07:57)
[2023-12-03] MEDS: WITCH HAZEL 40 PADS 1 PAD TOPICAL (07:58)
[2023-12-03] MEDS: BENZOCAINE 20% AER SPR (*SP) 56 GM CAN 1 SPRAY TOPICAL (07:59)
--- NOTE | 2023-12-03 11:19 | PC.NURSE ---
Patient viewed the discharge video Mother & Baby Care, The First Two Weeks . Patient was given the opportunity and encouraged to ask questions. Patient verbalized understanding of information shared and has been given the mother/baby guide for home reference.
[2023-12-04 09:36] VITALS: BP 139/63; PULSE 63; RESP 18; TEMP 36.7; O2SAT 100
--- NOTE | 2024-01-05 10:09 | PM.OBDSVD ---
DS: Admitting Diagnosis Discharge Date 12/03/23 Admitting Diagnosis Induction of labor DS: Discharge Diagnosis Discharge Diagnosis (1) Vaginal delivery: Code(s): O80 - Encounter for full-term uncomplicated delivery Status: Acute OB - DS: Summary Hospital Course Hospital Course: She was admitted for [facility]. She had an uncomplicated vaginal delivery. She did well . Baby did well. She was discharged to home on day 2. OB Procedures : Ultrasound OB Procedures Intrapartum: Spontaneous Vag Delivery OB Procedures: : None Peripartum Data Delivery Method: Natural Vaginal Laceration Description: Perineal - 2nd Degree complications: none Status at Discharge Functional status at discharge: independent ambulation Time Spent with Patient Time attestation: Total time spent providing and/or coordinating discharge services: Exam Const: General: cooperative Orientation/consciousness: oriented to person, oriented to place and oriented to time HENMT: Face/Nose/Sinus: Normal external nose present Eyes: General: appearance normal, both eyes and all related structures Resp: Effort & Inspection: normal respiratory effort GI: Inspection: normal to inspection Skin: General skin exam: normal color Neuro: General: oriented to person, oriented to place and oriented to time Extrem: General: normal to inspection and no calf tenderness Psych: Appearance: grossly normal Mental Status: mental status grossly normal Discharge Plan Discharge Attending physician on discharge: Panfilo Anderson Consulting providers: Ijeoma Marcus; Rishi Bailon Discharging Clinician: Panfilo Anderson Anticipated Discharge Date/Time: 12/03/23 10:24 Patient Disposition: Home, Self-Care Activity: may shower, no straining and pelvic rest Diet: regular Discharge Instructions: Education: Mom and Baby Guide Given to: Mother Follow-Up: Call your delivering provider's office for an appointment to be seen in: 2 Weeks Mom and baby should come to the [facility] for the follow-up appointment. Appointment Date/Time: December 04, 2023 at 9:00 am What to expect at your follow-up visit: Physical Assessment Call [phone] if you are unable to keep your appointment time. BREAST CARE: * Wear a snug supportive bra. * For engorgement discomfort: Breast Feeding: * Apply warm moist washcloths * Express milk as needed to relieve engorgement * Wear loose clothing * For sore nipples: * Identify correct latch-on * Apply warm moist washcloths before and after nursing * Air dry nipples after nursing * May apply Lansinoh cream to nipples EPISIOTOMY/PERINEAL CARE: * Until bleeding stops, use your baljit bottle after urinating * Change your pad frequently throughout the day * You may take sitz baths several times a day (fill your bathtub with warm water and soak for 20 minutes.) Do NOT bathe in the water * No tub baths until seen by your physician - You may shower ACTIVITY: * Rest as much as possible. * Do not exercise or lift anything heavier than your baby (such as laundry or other children.) * Avoid stairs or driving as much as possible. * Do not put anything into the vagina. No douching, tampons, or sexual activity until seen by physician. NOTIFY PHYSICIAN IF YOU HAVE ANY QUESTIONS OR IF ANY OF THE FOLLOWING SYMPTOMS OCCUR: * If your episiotomy or incision becomes red, swollen, or more painful than what you have experienced in the hospital. * If your vaginal bleeding becomes foul smelling. * If your vaginal bleeding becomes more heavy than a period or if your bleeding changes from pink to bright red. However, you may pass an occasional walnut-sized clot once or twice for the first week . * If you experience a sharp, shooting pain in you calves. * If you discover a hard,
== END 2023-12-03 13:55 | disposition home or self-care (01) | DRG 807 ==
LOC: ANHLDR 06:42 → ANHOB2 12-01 03:39
PROVIDERS: Admitting Provider Obstetrics & Gynecology; Visit Provider Obstetrics & Gynecology
DX: O98.52 Other viral diseases complicating childbirth (principal); Z37.0 Single live birth; B00.9 Herpesviral infection, unspecified; O69.82X0 Labor and delivery complicated by other cord entanglement, without compression, not applicable or unspecified; O70.1 Second degree perineal laceration during delivery; Z3A.40 40 weeks gestation of pregnancy
CPT/HCPCS: 36415; 80053; 84550; 85014; 85018; 85025; 85055; 86592; 86703; 86850; 86900; 86901; A9270; G0432; J2590; J2795; J7120

== ENCOUNTER 2024-08-25 12:36 | Emergency (ER) | payer OTHER, SELFPAY ==
[2024-08-25 12:37] VITALS: BP 119/63; PULSE 65; RESP 18; TEMP 36.6; O2SAT 99
[2024-08-25 13:11] VITALS: BP 105/66; PULSE 76; RESP 16; TEMP 36.5; O2SAT 98
[2024-08-25 13:13] VITALS: BP 105/66; PULSE 63; RESP 18; O2SAT 97
--- NOTE | 2024-08-25 13:15 | ED.HA ---
HPI - Headache General Chief Complaint: Headache Stated Complaint: headache x10 days Time Seen by Provider: 08/25/24 13:13 Source: patient Mode of arrival: ambulatory Limitations: no limitations History of Present Illness HPI Narrative: PATIENT DROVE HERSELF TO THE EMERGENCY ROOM COMPLAINING OF GENERALIZED HEADACHE STARTED OVER 1 WEEK AGO, MAXIMUM 02/04. ON ARRIVAL TO THE ED 12/05. PATIENT REPORTS A LOT OF STRESS LATELY. SHE DENIES ANY FEVER, CHILLS, NAUSEA, VOMITING, DIARRHEA, CONSTIPATION OR URINARY SYMPTOMS Related Data Home Medications ?Medication ?Instructions ?Recorded ?Confirmed ?Last Taken ?Type vits 75-iron 28 mg-folic 1 pkg PO DAILY 04/27/23 12/17/23 1 Day Ago History acid 800 mcg-omega3 440 mg oral ~11/29/23 pack (One Daily ) Allergies Allergy/AdvReac Type Severity Reaction Status Date / Time No Known Allergies Allergy Verified 08/25/24 13:13 Review of Systems Review of Systems: All systems reviewed & are unremarkable except as noted in HPI and below PMFSH Past Medical History Medical History HSV (herpes simplex virus) anogenital infection Obesity (BMI 30-39.9) Seasonal allergies Surgical History Surgical History [place] teeth removed Family History Family History Grandparent Diabetes mellitus Maternal grandmother Hypertension Maternal grandmother Cerebrovascular accident Maternal grandmother Mother Crohn's disease Father Prostate carcinoma Social History Social History Smoking status: Never smoker Alcohol intake: current Substance use: never Do You Feel Safe in your Home?: Yes Lack of Transportation: No Lack of Food: Never True Current Housing: I Have Housing Concerned About Future Housing: No Difficulty Paying Gas/Electric Bills: No Difficulty Paying for Meds: No Currently Unemployed: No Education: Bachelor's Degree Difficulty w/ Childcare or Family Care: No Living arrangements: with family Occupation/Education: occupation Gender identity (if verbalized by the patient): Female Sexual Orientation (if Verbalized by the Patient): Straight or Heterosexual Spiritual care concerns: No (Pentecostal) Agree to blood products: Yes Exam Narrative: GENERAL APPEARANCE: WELL-DEVELOPED, WELL-NOURISHED SKIN: NORMAL COLOR HEAD: NORMOCEPHALIC, NONTRAUMATIC EYES: CLEAR CONJUNCTIVA ENT: OROPHARYNX NORMAL, EARS NORMAL, NOSE NORMAL NECK: SUPPLE, NONTENDER CHEST AND RESPIRATORY: AIRWAY PATENT, NO RESPIRATORY DISTRESS, NO ACCESSORY MUSCLE USE HEART: REGULAR RATE/RHYTHM ABDOMEN: SOFT, NONTENDER, NO ORGANOMEGALY, QUIET BOWEL SOUNDS VASCULAR: NORMAL PERIPHERAL PULSES, NORMAL CAPILLARY REFILL. MUSCULOSKELETAL: NORMAL RANGE OF MOTION, NONTENDER BACK NEUROLOGIC: ALERT AND ORIENTED ?3, [employer] REPRESENTATIVE IS NORMAL TESTED, NO GROSS MOTOR DEFICIT Course Vital Signs Vital signs: Vital Signs Temperature 36.6 C 08/25/24 12:37 Pulse Rate 65 08/25/24 12:37 Respiratory Rate 18 08/25/24 12:37 Blood Pressure 119/63 08/25/24 12:37 Pulse Oximetry 99 08/25/24 12:37 Oxygen Delivery Room Air 08/25/24 12:37 Temperature 36.5 C 08/25/24 13:11 Pulse Rate 63 08/25/24 13:13 Respiratory Rate 20 08/25/24 15:01 Blood Pressure 98/82 L 08/25/24 15:01 Pulse Oximetry 100 08/25/24 15:15 Oxygen Delivery Room Air 08/25/24 12:37 MDM - Headache MDM Narrative Medical decision making narrative: PATIENT PRESENTS WITH HEADACHE VITAL SIGNS ARE STABLE PHYSICAL EXAMINATION IS UNREMARKABLE DIFFERENTIAL DIAGNOSIS INCLUDE STRESS, ANXIETY, MIGRAINE HEADACHE, TENSION HEADACHE, URINARY TRACT INFECTION, DEHYDRATION, UPPER RESPIRATORY VIRAL INFECTION BLOOD WORKUP TODAY INCLUDES CBC CMP SHOWED NO ACUTE ABNORMALITY URINALYSIS SHOWED EVIDENCE OF INFECTION CT BRAIN SHOWED NO ACUTE ABNORMALITIES, CHEST X-RAY SHOWED NO ACUTE ABNORMALITIES RESPIRATORY PANEL CAME BACK NEGATIVE FOR COVID, FLU AND RSV Differential Diagnosis Differential diagnosis: Likely other ( ABOVE) Medical Records Attestation: I reviewed the patient's medical records. Lab Data Attestation: I reviewed the patient's lab results. 08/25/24 13:50 08/25/24 13:50 Labs: Lab Results 08/25/24 08/25/24 Range/Units 13:50 14:04 WBC 8.0 (4.5-10.0) K/mm3 RBC 4.42 (4.2-5.4) M/mm3 Hgb 12.9 (12.0-15.0) g/dL Hct 40.6 (37.0-47.0) % MCV 91.9 (80-100) fl MCH 29.2 (26-34) pg MCHC 31.8 L (32-36) g/dl RDW 12.6 (11.5-14.5) % Plt Count 162 (150-375) k/mm3 MPV 14.1 H (7.4-10.4) fl Immature Gran % (Auto) 0.4 (0-0.5) % Neut % (Auto) 61.1 (45.5-73.1) % Lymph % (Auto) 27.0 (18.3-44.2) % [place] % (Auto) 7.6 (2.6-8.5) % Eos % (Auto) 2.9 (0-4.4) % Baso % (Auto) 1.0 (0.2-1.2) % Lymph # (Auto) 2.16 (0.9-3.2) K/mm3 [place] # (Auto) 0.6 (0.1-0.6) K/mm3 Eos # (Auto) 0.2 (0-0.3) K/mm3 Baso # (Auto) 0.1 (0.0-0.1) K/mm3 Abs Immat Gran (auto) 0.03 (0.00-0.031) K/mm3 Absolute Neuts (auto) 4.9 (1.3-6.7) K/mm3 Absolute Nucleated RBC 0.000 (0.0-0.012) K/mm3 Nucleated RBC % 0.0 (0.0-0.2) % % Immature Plt Fraction 18.1 H (0.9-11.2) % Sodium 139 (137-145) mmol/L Potassium 4.3 (3.4-5.0) mmol/L Chloride 104 (98-107) mmol/L Carbon Dioxide 23 (22-30) mmol/L Anion Gap 12 (4-12) mmol/L BUN 9 (7-17) mg/dL Creatinine 0.62 L (0.7-1.0) mg/dL Estim Creat Clear Calc 143 ml/min Estimated GFR > 60 (59 - ) Glucose 77 (65-110) mg/dL Calcium 9.4 (8.4-10.2) mg/dL Total Bilirubin 0.5 (0.2-1.3) mg/dL AST 36 (14-36) U/L ALT 19 (6-35) U/L Alkaline Phosphatase 96 (38-126) U/L Total Protein 8.0 (6.3-8.2) g/dL Albumin 4.3 (3.5-5.1) g/dL Urine Color Yellow (Yellow) Urine Appearance Cloudy H (Clear) Urine pH 6.0 (5.0-9.0) Ur Specific [place] 1.016 (1.001-1.035) Urine Protein Negative (Negative) mg/dL Urine Glucose (UA) Negative (Negative) mg/dL Urine Ketones Negative (Negative) mg/dL Ur Blood (Man) Negative (Negative) Urine Nitrate Negative (Negative) Urine Bilirubin Negative (Negative) Urine Urobilinogen 0.2 (<2.0) mg/dL Leukocyte Esterase Rfl 2+ H (Negative) MIGUEL/UL Urine RBC 0-2 (0-2) /hpf Urine WBC 21-50 H (0-3) /hpf Ur Squamous Epith Cells Few (Few) /hpf Urine Bacteria 1+ H /hpf Urine Casts 0-2 Imaging Data Radiologist's impression: Impressions Head CT 08/25/24 13:38 IMPRESSION: 1. Normal brain. Chest X-Ray 08/25/24 13:41 IMPRESSION: No focal infiltrate or effusion. Critical Care Time Critical Care Time Critical Care Time: No Discharge Plan Discharge Clinical Impression: Headache, Urinary tract infection Patient Disposition: Home, Self-Care Condition: Improved Instructions: Antibiotic Form, Urinary Tract Infection in Women (DC), Acute Headache (ED) Additional Instructions: RETURN IF SYMPTOMS ARE WORSENING , CALL YOUR FAMILY PHYSICIAN FOR APPOINTMENT, TAKE TYLENOL NEEDED FOR ACHES AND PAIN, CONTINUE HOME MEDICATIONS. Patient Language: Lebanese Prescriptions: New nitrofurantoin monohyd/m-cryst [Macrobid] 100 mg capsule 100 mg PO Q12H 5 Days Qty: 10 0RF Rx Instructions: must administer with a meal/food No Action One Daily 28-800-440 mg-mcg-mg combo pack 1 pkg PO DAILY estradiol [Estrace] 0.01 % (0.1 mg/gram) cream 1 appful vaginal DAILY Qty: 42.5 0RF Rx Instructions: apply small amount to affected area nightly fluconazole 150 mg tablet 150 mg PO ONCE Qty: 2 0RF Rx Instructions: as a single dose, repeat in three days if symptoms persist triamcinolone acetonide 0.1 % cream 1 applic topical BID PRN (Reason: itching) Qty: 30 0RF Follow-up/Referrals: Benjamin Robledo MD [Physician] - 08/28/24 UNKNOWN,DOCTOR [Non-Staff] -
[2024-08-25 13:59] LABS: Basophils Absolute Auto 0.1 K/mm3 (0.0-0.1); Eosinophils Absolute Auto 0.2 K/mm3 (0-0.3); Eosinophils Percent Auto 2.9 % (0-4.4); Hematocrit 40.6 % (37.0-47.0); Hemoglobin 12.9 g/dL (12.0-15.0); Immature Granulocyte Absolute 0.03 K/mm3 (0.00-0.031); Immature Granulocyte Percent A 0.4 % (0-0.5); Immature Platelet Fraction Pct 18.1 % (0.9-11.2); Lymphocytes Absolute Auto 2.16 K/mm3 (0.9-3.2); Mean Corpuscular HGB Conc 31.8 g/dl (32-36); Mean Corpuscular Hemoglobin 29.2 pg (26-34); Mean Corpuscular Volume 91.9 fl (80-100); Mean Platelet Volume 14.1 fl (7.4-10.4); Monocytes Absolute Auto 0.6 K/mm3 (0.1-0.6); Monocytes Percent Auto 7.6 % (2.6-8.5); Neutrophils Absolute Auto 4.9 K/mm3 (1.3-6.7); Neutrophils Percent Auto 61.1 % (45.5-73.1); Platelet Count Result 162 k/mm3 (150-375); Red Blood Count 4.42 M/mm3 (4.2-5.4); Red Cell Distribution Width 12.6 % (11.5-14.5)
[2024-08-25] MEDS: SODIUM CHLORIDE 0.9% IV 1,000 ML 999 ML IV CONT ×2 (14:12→14:13)
[2024-08-25] MEDS: KETOROLAC 30 MG/ML VIAL (*BKC) IV PUSH (14:14)
[2024-08-25 14:35] LABS: Alanine Aminotransferase 19 U/L (6-35); Albumin Level 4.3 g/dL (3.5-5.1); Alkaline Phosphatase 96 U/L (38-126); Anion Gap 12 mmol/L (4-12); Aspartate Amino Transferase 36 U/L (14-36); Bilirubin,Total 0.5 mg/dL (0.2-1.3); Blood Urea Nitrogen 9 mg/dL (7-17); Calcium 9.4 mg/dL (8.4-10.2); Carbon Dioxide 23 mmol/L (22-30); Chloride 104 mmol/L (98-107); Estimated CRCL calculation 143 ml/min; Estimated Glomerular Filt Rate > 60; Glucose 77 mg/dL (65-110); Potassium 4.3 mmol/L (3.4-5.0); Sodium 139 mmol/L (137-145)
[2024-08-25 14:39] LABS: Add Urine Microscopic? YES; Appearance Urine Cloudy (Clear); Bacteria Urine 1+ /hpf; Bilirubin Urine Negative (Negative); Blood Urine Negative (Negative); Color Urine Yellow (Yellow); Glucose Urine UA Negative (Negative); Ketones Urine Negative (Negative); Leukocyte Esterase Ur 2+ LEU/UL (Negative); Nitrate Urine Negative (Negative); Non Pathogenic Casts 0-2; Protein Urine Negative (Negative); RBC Urine 0-2 /hpf (0-2); Specific Grav Ur 1.016 (1.001-1.035); Squamous Epithelial Cell Urine Few /hpf (Few); Urobilinogen Urine 0.2 mg/dL (<2.0); WBC Urine 21-50 /hpf (0-3)
[2024-08-25 15:01] VITALS: BP 98/82; RESP 20; O2SAT 100
[2024-08-25 15:15] VITALS: O2SAT 100
== END 2024-08-25 16:15 | disposition home or self-care (01) ==
PROVIDERS: Emergency Provider Emergency Medicine
DX: R51.9 Headache, unspecified (principal); N39.0 Urinary tract infection, site not specified
CPT/HCPCS: 36415; 70450; 71045; 80053; 81001; 85025; 85055; 87086; 96361; 96374; 99284; J1885; J7030

== ENCOUNTER 2024-10-11 11:59 | Outpatient (CLI) | payer OTHER, SELFPAY ==
--- NOTE | ~2024-10-11 | CT_ITS ---
EXAMINATION: CT sinus wo con DATE: 10/11/2024 12:14 INDICATION: Chronic sinusitis TECHNIQUE: Computed tomography (CT) of the paranasal sinuses was performed without intravenous contra st. The dose-length product was 295.05 mGy-cm. Automated exposure control and iterative reconstructio n technique were employed. COMPARISON: CT dated 08/25/2024 FINDINGS: There is 2.2 cm mucous retention cyst of the left maxillary sinus. Ostiomeatal units are pa tent bilaterally. Leftward nasal septal deviation. No significant mucosal thickening. No mucoperioste al reaction. No air-fluid levels. Mastoids are pneumatized. IMPRESSION: 1. Mucous retention cyst of the left maxillary sinus measuring 2.2 cm. Reviewed, dictated and finalized at location B.
== END 2024-10-11 12:00 | disposition home or self-care (01) ==
PROVIDERS: PCP Otolaryngology; Visit Provider Otolaryngology
DX: J34.1 Cyst and mucocele of nose and nasal sinus (principal); J32.9 Chronic sinusitis, unspecified
CPT/HCPCS: 70486

== ENCOUNTER 2024-11-28 19:10 | Emergency (ER) | payer OTHER, SELFPAY ==
--- NOTE | ~2024-11-28 | CT_ITS ---
CT brain wo con Ordering provider: Lon Rosas MD History: 34 years Female with . headaches . Comparison: None. Technique: CT of the head without contrast. Radiation reduction technique utilized.The dose-length pr oduct was 681 mGy-cm. FINDINGS: BRAIN PARENCHYMA AND CSF SPACES: No midline shift, mass effect or hemorrhage. The brain parenchyma a nd CSF spaces are otherwise normal. VISUALIZED PARANASAL SINUSES: Well aerated. MASTOIDS: Well aerated. BONES: The bones appear intact. SOFT TISSUES: Visualized nasopharynx is normal. Superficial soft tissues are normal. IMPRESSION: No acute intracranial findings. Reviewed, dictated and finalized at location A.
--- OUTSIDE RECORDS SUMMARY | 2024-11-28 19:13 | XMS_ITS | Encounter Summary ---
Author Organization [facility] Healthcare Address [address] [place] [address] Care Team Providers Care Adjustment Examiner Name Role Phone Tara Perez DNP Primary Care Provi cielo Encounter Details Date Type Department Care Team (Late st Contact Info) Description 11/20/2024 Results Follow-Up [facility] Medical Group Family Medicine [address] [place] [id number] [address] Thyroid peroxidase antibody (TPO) Social History Tobacco Use Types Packs/Day Years Used Date Smoking Tobacco: Never Smokeless Tobacco: Never AUDIT-C Answer Date Recorded Q1: How often do you have a drink containing alc ohol? 2-4 times a month 10/12/2024 Q2: How many drinks containi ng alcohol do you have on a typical day when you are drinking? 1 or 2 10/12/2024 Q3: How often do you have si x or more drinks on one occasion? Never 10/12/2024 PHQ-2 Answer Date Recorded PHQ-2 Total Score (If total score is 3 or more points, staff should administer the PHQ-9) 0 10/12/2024 Comments Unknown Sex and Gender Information Value Date Recorded Sex Assigned at Not on file Legal Sex Female 9:01 AM [employer] Gender Identity Not on file Sexual Orientation Not on file documented as of this encounter Plan of Treatment Not on file documented as of this encounter Visit Diagnoses Not on filedocumented in this encounter Care Teams Adjustment Examiner Relationship Specialty Start Date End Date Tara Perez DNP [address] [place] [address] [place] [id number] PCP - General Family Medicine 10/12/24 documented as of this encounter
--- OUTSIDE RECORDS SUMMARY | 2024-11-28 19:13 | XMS_ITS | Data Portability ---
Author Organization [place] [facility], Main Office Address [address] [place] [address] Care Team Providers Care Progressive Assembler And Fitter Name Role Phone MIKALA WHALEN Primary Care Provider ANGELA HERNANDEZ Anesthesiologist Attending Assessment No assessment recorded. Plan of Treatment Reminders Order Date Submit Date Provider Last Modified By Organization Details Last Modified Time Details Appointments Surgery 2024 10:00A Tracy Beavers MD Not available Not available Not available Post-Op 15 2024 09:15A Tracy Beavers MD Not available Not available Not available Lab None recorded. Referral None recorded. Procedures None recorded. Surgeries septoplas ty (SURG) 2024 025 Not available 11/23/2024 09:02:09 endoscopy , nasal/sin us, w/ maxillary antrostom y & tissue removal (SURG) 2024 025 Not available 11/23/2024 09:02:09 submucous resection inferior turbinate (SURG) 2024 025 Not available 11/23/2024 09:02:09 Imaging None recorded. Medication Orders None recorded. Patient TargetsNo targets recorded. Patient Instructions Encounter Date Encounter Id Patient Instructions Last Modified By Organization Details Last Modified Time 10/05/2024 [id number] she does not believe that she needs antibiotics at this point [email or web address] Not available 10/05/2024 12:36:15 Reason for Referral None Reported. Results Created Date Observation Date Name Description Value Unit Range Abnormal Flag Note LastModifiedBy Organization Detail LastModifiedTime 10/14/1910/13/2024 CT, sinus es, w/o contr ast No observ ation record ed. [facility] [address], [place], [address], 10/13/2024 12:15:17 10/21/19 25 10/20/2024 CT, sinus es, w/o contr ast No observ ation record ed. [facility] [address], [place], [address], 10/20/2024 13:08:24 Result Notes None recorded. Problems Name Problem SNOMED Code Status Onset Date Resolution Date Notes Provider Name and Address Organization Details Recorded Time Chronic sinusitis 17942229 Active 2024 Rosa Bartlett RN [facility], [place] 12:33:50 Hypertrophy of nasal turbinates 27111670 Active 2024 Luis Beavers MD [address], [address], [place], [address], [place] 11:31:31 Deviated nasal septum 062189971 Active 2024 Luis Beavers MD [address], [address], [place], [address], [place] 11:31:17 Maxillary sinusitis 81504025 Active 2024 Luis Beavers MD [address], [place], [address], [place] 11:31:51 Problem Notes None recorded. Medical Equipment None Reported. Allergies No known drug allergies Medications Not known to be on any medication Vitals Date Recorded Body weight Body mass index (BMI) Body height Body temperature Provider Name and Address Organization Details Last Updated DateTime 10/05/2024 005084.35 g 34.7 kg/m2 177.8 cm 97.5 [degF] Lucia Hernandez [place] 10/05/2024 12:20:44 Date Recorded Body height Body mass index (BMI) Body weight Body temperature Provider Name and Address Organization Details Last Updated DateTime 10/26/2024 177.8 cm 34.7 kg/m2 362597.35 g 97.6 [degF] Rosa Bartlett RN [facility] 10/26/2024 11:07:38 Social History Question Answer Notes LastModified by Organizat ion Details LastModified Time Tobacco Smoking Status Never Smoker Lucia Hernandez mary, [facility] 10/05/2024 12:21:29 What Was The Date Of Your Most Recent Tobacco Screening? 10/05/2024 [email or web address] Information not available 10/05/2024 Sex: Unknown Functional Status Question Answer Note LastModified by Organization D etails LastModified Time What is your level of alcohol consumption? Moderate [email or web address] Information not available 10/05/2024 Mental Status None recorded. Family History Nothing Reported Notes:NO ENT Medical History Condition Response MRSA N ALLERGIES/HAYFEVER N BACK INJECTIONS N LUNG DISEASE/DISORDER N INSOMNIA N HISTORY OF DRUG ABUSE N ESRD N RADIATION / CHEMOTHERAPY N COPD N HIGH CHOLESTEROL / HYPERLIPIDEMIA N HYPERTHYROIDISM N PVD N BLOOD DISEASES N EAR OR HEARING PROBLEMS N HYPOTHYROIDISM N SHINGLES N DEPRESSION (INCLUDING POST ) N BACK / NECK PROBLEMS N HAVE YOU BEEN HOSPITALIZED OR SEEN IN [facility] ER IN THE PAST YEAR ? N FAILED BACK SYNDROME N STROKE/TIA N POLYCYSTIC OVARIES N OBESITY N ANEURYSM N HISTORY WITH COMPLICATIONS WITH ANESTHES IA ? N Do you have Advance directive? N USE OF BLOOD THINNERS N NO SIGNIFICANT PAST MEDICAL HISTORY N DIABETES, TYPE N VON WILLIBRAND'S DISEASE N PARATHYROID DISEASE N ENT N SEASONAL ALLERGIES N HEARTBURN / REFLUX N POST LAMINECTOMY SYNDROME N HEPATITIS / LIVER DISEASE N SLEEP DISORDER N ARTERIAL INSUFFICIENCY N HEADACHES/MIGRAINES N SEIZURES/EPILEPSY N CHF N PACEMAKER N DIZZINESS N HEART DISEASE/HEART PROBLEMS N AIDS/HIV N NEUROPSYCHOLOGICAL N HYPERTENSION N CANCER: SPECIFY N TOURETTE'S N BLOOD TRANSFUSION N ANESTHESIA COMPLICATIONS N ANEMIA/BLOOD DISORDER N CHRONIC EAR INFECTIONS N ATRIAL FIBRILLATION N AUTOIMMUNE DISEASE N TUBERCULOSIS N Gynecological HistoryNo gynecological history recorded. Obstetrics History GPAL:G 0 P 0 0 0 0 Past Encounters Encounter ID Performer Location Encounter Start Date Encounter Closed Date Diagnosis/Indication Diagnosis SNOMED-CT Code Diagnosis ICD10 Code Diagnosis Note [id number] Luis Beavers MD [facility] [place] [address] [place] [address] 10/05/2024 12:12:02 10/10/2024 10:30:37 Chronic sinusitis 47256446 J32.9 Hypertroph y of nasal turbinates 95867946 J34.3 [id number] Luis Beavers MD [facility] [place] [address] [place] [address] 10/26/2024 10:58:53 10/27/2024 15:56:53 Deviated nasal septum 981237451 J34.2 Hypertroph y of nasal turbinates 26581865 J34.3 Maxillary sinusitis 8834 8008 J32.0 Health Concerns Section Related Observation LastModified by Organization Detai ls LastModified Time None Recorded Concern Status LastModified by Organization Details LastModified Time None Recorded Advance Directives Directive None Recorded Payers Encounter Date Sequence Insurance Name Policy Number Policy [place] Covered Member ID [place] Member ID Guarantor Name 10/05/2024 1 [facility] [id number] Katie Lansing [id number] Katie Lansing 10/26/2024 1 [facility] [id number] Katie Lansing [id number] [facility] Notes Date Note Type Note Provider Name and Address Organization Details Recorded Time 10/05/2024 text/html this patient was told by her dentist that she has bilateral mucoceles. She has been having headaches. She did go to the emergency room in July and was given antibiotics. She does have some seasonal allergies. Luis Beavers MD [address] [address], [place], [address], [employer] [facility] 10/05/2024 12:36:55 10/26/2024 text/html this patient had a CT demonstrating a 2+ cm left maxillary sinus cyst. This is symptomatic in that it produces headache. In addition septal deviation was identified in the marked turbinate hypertrophy had been previously identified Luis Beavers MD [address], [facility] [address], [place], [address], [employer] [facility] 10/26/2024 11:32:37 OBGyn Episode No OBEpisode recorded.
--- OUTSIDE RECORDS SUMMARY | 2024-11-28 19:13 | XMS_ITS | Encounter Summary ---
Author Organization [facility] Healthcare Address [address] [place] [address] Care Team Providers Care Revenue Audit Clerk Name Role Phone Tara Perez DNP Primary Care Provi cielo Reason for Referral * Diagnostic Imaging (Routine) - Pending Review Specialty Diagnoses / Procedures Referred By Contayo t Referred To Contact Diagnoses Abnormal thyroid ultrasound Multiple thyroid nodules Procedures US Thyroid Tara Perez DNP [address] [place] [address] [address] [place] [id number] Phone: tel: fax: [facility] [address] [place] [address] Referral ID Status Reason Start Date Expiration Date V isits Requested Visits Authorized [id number] Pending Review 11/06/2024 12/06/2025 1 1 Encounter Details Date Type Department Care Team (Late st Contact Info) Description 11/06/2024 Results Follow-Up [facility] Family Medicine [address] 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 Gender Identity Not on file Sexual Orientation Not on file documented as of this encounter Plan of Treatment Scheduled Orders Name Type Priority Associated Diagnoses Orde r Schedule US Thyroid Imaging Schedule Routine , Read Routine (OP Routine) Abnormal thyroid ultrasound Multiple thyroid nodules Expected: 11/06/2025 (Approximate), Expires: 05/09/2026 documented as of this encounter Results * Thyroglobulin antibodies (11/15/2024 11:33 AM CDT) Anti-thyroglobulin <1.8 <4.0 IUnits/mL [facility] Comment: ADDITIONAL INFORMATION PLEASE NOTE: The given thyroglobulin antibody (TgAb) reference cutoff of <4.0 IU/mL is for the evaluation of autoimmune thyroiditis. A cutoff of <1.8 IU/mL may be more suitable for the detection of potential thyroglobulin antibody (TgAb) interference in thyroglobulin immunoassays. The thyroglobulin antibody testing method is an immunoenzymatic assay manufactured by [employer] and performed on the [employer] DXI 800. Values obtained from different assay methods or kits may be different and cannot be used interchangeably. The results cannot be interpreted as absolute evidence for the presence or absence of malignant disease. Test Performed by: [address] [address] Cloth Bleaching Supervisor: Grayson Torres Ph.D.; CLIA# [id number] Blood 11/15/2024 11:3 3 AM CDT 11/15/2024 9:37 PM CDT us Tara Perez [facility] BLOOD ORDERABLE S Final Result [facility] [address] Department of Laboratories [place], [place] [id number] [facility] * Thyroid peroxidase antibody (TPO) (11/15/2024 11:33 AM CDT) Anti Thyroid Peroxidase <30 <=34 IUnits/mL Comment: ATPO Interpretive Data Results may be up to 28% higher in patients receiving Itraconazole. Current interpretive data was last revised 2020. Testing performed by: [facility], [address] [place]., [address] Blood 11/15/2024 11:3 3 AM CDT 11/16/2024 10:02 AM CDT us Tara Perez [facility] BLOOD ORDERABLE S Final Result Performing Organization Address City/[facility] Co de Phone Number [facility] [address] [address] Department [place] [address] documented in this encounter Visit Diagnoses Diagnosis Thyroid disorder screen- Primary Screening for thyroid disorder Abnormal thyroid ultrasound Multiple thyroid nodules Nontoxic multinodular goiter documented in this encounter Care Teams Revenue Audit Clerk Relationship Specialty Start Date End Date Tara Perez DNP [address] [place] [phone] PCP - General Family Medicine 10/12/24 documented as of this encounter
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
--- OUTSIDE RECORDS SUMMARY | 2024-11-28 19:13 | XMS_ITS | Referral Summary ---
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 Outpatient Lab at [address] [phone] 11/14/2024 9:30 AM CDT Office Visit [address] [place] [phone] Tara Perez DNP Encounter to discuss test results (Primary Dx); Multiple thyroid nodules; Abnormal thyroid ultrasound; Class 1 obesity without serious comorbidity with body mass index (BMI) of 34.0 to 34.9 in adult, unspecified obesity type 11/06/2024 Results Follow-Up [address] [place] [address] Tara Perez DNP US Thyroid 10/25/2024 7:10 AM CDT - 10/25/2024 11:59 PM CDT Hospital Encounter [id number] [place] [address] Enlarged thyroid Discharge Disposition: Discharge to home or self care 10/23/2024 Results Follow-Up [address] [place] [address] Tara Perez DNP Urinalysis reflex to microscopic and culture Urine, clean voided, Urinalysis, microscopic only, Thyroid Function [place], Additional followed-up results: 7 10/23/2024 9:21 AM CDT - 10/23/2024 11:59 PM CDT Hospital Encounter [address] [address] Thyroid disorder screen; Annual physical exam; Encounter for long-term (current) use of medications; Lipid screening; Screening for diabetes mellitus; Encounter for vitamin deficiency screening Discharge Disposition: Discharge to home or self care 10/23/2024 9:30 AM CDT Lab [facility] Outpatient Lab at [address] [address] Annual physical exam (Primary Dx) 10/20/[address] [place] [phone] Tara Perez DNP Med Refill 10/12/2024 9:30 AM CDT Office Visit [address] [place] [phone] Tara Perez DNP Annual physical exam (Primary Dx); Encounter to establish care; Depression screen; Enlarged thyroid; Bilateral impacted cerumen; Chronic sinusitis, unspecified location; Hypertrophy of nasal turbinates; Mucous retention cyst of maxillary sinus; Screening for diabetes mellitus; Lipid screening; Thyroid disorder screen; Encounter for vitamin deficiency screening; Encounter for long-term (current) use of medications; Class 1 obesity without serious comorbidity with body mass index (BMI) of 34.0 to 34.9 in adult, unspecified obesity type from Last 3 Months Allergies No known active allergies Medications carbamide peroxide (DEBROX) 6.5 % otic solutionIndicat ions:Impacted Cerumen Administer 5 drops into each ear 2 (two) times a day 15 mL 5 Active fluticasone propionate (FLONASE) 50 mcg/actuation nasal sprayIndication s:Allergic Rhinitis Administer 2 sprays into each nostril daily 16 g 3 5 Active cetirizine (ZyrTEC) 10 mg tablet Take 1 tablet (10 mg total) by mouth daily as needed for rhinitis or allergies 90 tablet 3 5 10/13/19 26 Active Active Problems Problem Noted Date Diagnosed Date Abnormal thyroid ultrasound 11/14/2024 Assessment & Plan (11/14/2024 10:35 AM CDT): Refer to endocrinology Speak with your ENT about thyroid nodule results Multiple thyroid nodules 11/14/2024 Assessment & Plan (11/14/2024 10:36 AM CDT): Refer to endocrinology Speak with your ENT about thyroid nodule results Deviated septum 11/14/2024 Encounter to discuss test results 11/14/2024 Assessment & Plan (11/14/2024 10:39 AM CDT): Refer to endocrinology Speak with your ENT about thyroid nodule results Mucous retention cyst of maxillary sinus 025 Assessment & Plan (10/12/2024 12:26 PM CDT): Managed by ENT, Dr. Baca Had CT yesterday at [facility] Sign release of information to obtain records Annual physical exam 10/12/2024 Assessment & Plan (10/12/2024 12:27 PM CDT): Labs ordered Recommend drinking at least 64 oz of water daily Recommend at least 26g fiber daily Recommend at least 150 min of exercise weekly as tolerated Recommend taking daily multivitamin Continue eating a healthy well-balanced diet. Limit processed foods like white starches, fast food, sweets and soda. Increase your vegetable intake and limit red meat. Wear your seatbelt at all times. No texting and driving. Continue to manage your stress in a healthy manner. Follow-up 1 year for annual physical. Enlarged thyroid 10/12/2024 Assessment & Plan (10/12/2024 12:27 PM CDT): Thyroid ultrasound ordered Class 1 obesity without seri ous comorbidity with body mass index (BMI) of 34.0 to 34.9 in adult 10/12/2024 Assessment & Plan (11/14/2024 10:35 AM CDT): Your BMI is elevated. Try to cut back on calories. Most people should eat between 7490-2830 calories to lose weight. Goal BMI is less than 30. A healthy BMI is considered between 19-25. Decrease your carbohydrate intake to less than 150 grams per day if possible and increase protein to help with hunger. Increase activity to 30 min 4-5 days a week of moderate aerobic activity and add strength training 2 times weekly, as tolerated. Consider using [employer] salvatore to track diet and exercise habits daily. Consider trying Weight Watcher program to make dietary changes. Visit www.dietaryguidelines.gov, www.myplate.gov, or www.health.gov for more dietary information and tips. Visit www.K[employer] or www.[employer]RentHome.ru for online card maker covered by health insurance. If you need further help with weight loss please let me know. I would be happy to help. Start with asking your insurance company what medications they provide coverage for. Check with your insurance to see if they authorize dietitian services with www.Kiosked Assessment & Plan (10/12/2024 12:27 PM CDT): Your BMI is elevated. Try to cut back on calories. Most people should eat between 6187-6753 calories to lose weight. Goal BMI is less than 30. A healthy BMI is considered between 19-25. Decrease your carbohydrate intake to less than 150 grams per day if possible and increase protein to help with hunger. Increase activity to 30 min 4-5 days a week of moderate aerobic activity and add strength training 2 times weekly, as tolerated. Consider using [employer] salvatore to track diet and exercise habits daily. Consider trying Weight Watcher program to make dietary changes. Visit www.dietaryguidelines.gov, www.myplate.gov, or www.health.gov for more dietary information and tips. Visit www.Kios[employer] or [employer] for online card maker covered by health insurance. If you need further help with weight loss please let me know. I would be happy to help. Start with asking your insurance company what medications they provide coverage for. Check with your insurance to see if they authorize dietitian services with www.Kiosked Some medications to ask about include phentermine, Qsymia, Contrave, Xenical, Wegovy, Zepbound. Bilateral impacted cerumen 10/12/2024 Assessment & Plan (10/12/2024 12:28 PM CDT): Use Debrox drops as prescribed Chronic sinusitis 10/05/2024 Assessment & Plan (10/12/2024 12:25 PM CDT): Managed by ENT, Dr. Baca Had CT yesterday at [facility] Sign release of information to obtain records Take cetirizine 10 mg daily Use Flonase daily Hypertrophy of nasal turbinates 10/05/2024 Assessment & Plan (10/12/2024 12:25 PM CDT): Managed by ENTDr. 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 Gender Identity Not on file Sexual Orientation Not on file Last Filed Vital Signs Vital Sign Reading Time Taken Comments Blood Pressure 120/62 11/14/2024 9:25 AM CDT Pulse 75 11/14/2024 9:25 AM CDT Temperature - - Respiratory Rate 18 11/14/2024 9:25 AM CDT Oxygen Saturation 99% 11/14/2024 9:25 AM CDT Inhaled Oxygen Concentration - - Weight 111.1 kg (245 lb) 11/14/2024 9:25 AM CDT Height 177.8 cm (5' 10) 11/14/2024 9:25 AM CDT Body Mass Index 35.15 11/14/2024 9:25 AM CDT Plan of Treatment Not on file Procedures Procedure Name Priority Date/Time Associated Diagnosis Comments THYROID PEROXIDASE ANTIBODY Routine 11/15/2024 11:33 AM CDT Thyroid disorder screen Abnormal thyroid ultrasound THYROGLOBULIN ANTIBODIES Routine 11/15/2024 11:33 AM CDT Thyroid disorder screen Abnormal thyroid ultrasound US THYROID Schedule Routine, Read Routine (OP Routine) 10/25/2024 7:43 AM CDT Enlarged thyroid EGFR Routine 10/23/2024 9:39 AM CDT Annual physical exam Screening for diabetes mellitus Encounter for long-term (current) use of medications DIFFERENTIAL AUTO Routine 10/23/2024 9:3 9 AM CDT Annual physical exam Encounter for long-term (current) use of medications VITAMIN D 25 HYDROXY Routine 10/23/2024 9:39 AM CDT Annual physical exam Encounter for vitamin deficiency screening Encounter for long-term (current) use of medications THYROID PEROXIDASE ANTIBODY Routine 10/23/2024 9:39 AM CDT Thyroid disorder screen CBC WITH AUTO DIFFERENTIAL Routine 10/23/2024 9:39 AM CDT Annual physical exam Encounter for long-term (current) use of medications COMPREHENSIVE METABOLIC PANEL Routine 10/23/2024 9:39 AM CDT Annual physical exam Screening for diabetes mellitus Encounter for long-term (current) use of medications HEMOGLOBIN A1C Routine 10/23/2024 9:39 AM CDT Annual physical exam Screening for diabetes mellitus Encounter for long-term (current) use of medications LIPID PANEL Routine 10/23/2024 9:39 AM CDT Annual physical exam Lipid screening Encounter for long-term (current) use of medications THYROID FUNCTION CASCADE Routine 10/23/2024 9:39 AM CDT Annual physical exam Thyroid disorder screen Encounter for long-term (current) use of medications URINALYSIS, MICROSCOPIC ONLY Routine 10/23/2024 9:21 AM CDT Annual physical exam Encounter for long-term (current) use of medications THYROGLOBULIN ANTIBODIES Routine 10/23/2024 9:21 AM CDT Thyroid disorder screen URINALYSIS AND REFLEX TO MICROSCOPIC AND CULTURE Routine 10/23/2024 9:21 AM CDT Annual physical exam Encounter for long-term (current) use of medications from Last 3 Months Results * Thyroglobulin antibodies (11/15/2024 11:33 AM CDT) Anti-thyroglobulin <1.8 <4.0 IUnits/mL [facility] Comment: ADDITIONAL INFORMATION PLEASE NOTE: The given thyroglobulin antibody (TgAb) reference cutoff of <4.0 IU/mL is for the evaluation of autoimmune thyroiditis. A cutoff of <1.8 IU/mL may be more suitable for the detection of potential thyroglobulin antibody (TgAb) interference in thyroglobulin immunoassays. The thyroglobulin antibody testing method is an immunoenzymatic assay manufactured by [employer] and performed on the [employer] DXI 800. Values obtained from different assay methods or kits may be different and cannot be used interchangeably. The results cannot be interpreted as absolute evidence for the presence or absence of malignant disease. Test Performed by: [facility] [address] [place] [address] Engine Test Cell Technician: Grayson Torres Ph.D.; CLIA# [id number] Blood 11/15/2024 11:3 3 AM CDT 11/15/2024 9:37 PM CDT Tara Isis AzarFormerly [facility] LAB BLOOD ORDERABLE S Final Result Performing Organization Address City/[facility] Co de Phone Number HOPE L[place] [address] [address] Department [employer] [place] [address] [place] ref Lab * Thyroid peroxidase antibody (TPO) (11/15/2024 11:33 AM CDT) Anti Thyroid Peroxidase <30 <=34 IUnits/mL Comment: ATPO Interpretive Data Results may be up to 28% higher in patients receiving Itraconazole. Current interpretive data was last revised 2020. Testing performed by: [facility], [address] [place]., [address] Blood 11/15/2024 11:3 3 AM CDT 11/16/2024 10:02 AM CDT Tara Perez [facility] LAB BLOOD ORDERABLE S Final Result Performing Organization Address City/[facility]/ZIP Co de Phone Number MLNADIYA LAGUNAS [address] [address] [place] [address] * US Thyroid (10/25/2024 7:43 AM CDT) Anatomical Region Laterality Modality Head and Neck N/A Ultrasound 11/03/2024 3:35 PM CDT Narrative 11/04/2024 7:06 AM CDT EXAM DESCRIPTION: US THYROID REASON FOR STUDY: enlarged thyroid TECHNIQUE: Ultrasound of the thyroid was performed with grayscale and color doppler. COMPARISON: None available. FINDINGS: RIGHT: The right thyroid lobe measures 5.2 x 1.7 x 1.8 cm. Mild heterogeneous echotexture. On gross visual inspection along the lower pole is a 0.6 cm hypoechoic nodule (TR 4). Similar hypoechoic midpole nodule measuring 0.3 cm (TR 4). LEFT: The left thyroid lobe measures 4.8 x 1.9 x 1.5 cm. Mild heterogeneous echotexture. On gross visual inspection there is a 0.5 cm hypoechoic nodule (TR 4). ISTHMUS: The isthmus measures 0.4 cm in AP dimension. No focal measured nodule. IMPRESSION: A few subcentimeter thyroid nodules as above and not meet criteria for fine-needle aspiration at this time. ACR TI-RADS Risk Category: 4 REFERENCE: According to the ACR Thyroid Imaging, Reporting and Data System (TI-RADS): White Paper of the ACR TI-RADS Committee Oct, 2016 recommendations regarding the management of thyroid nodules are as follows: 1. TI-RADS 1: Risk of malignancy <2%, no FNA or follow up required. 2. TI-RADS 2: Risk of malignancy <2%, no FNA or follow up required. 3. TI-RADS 3: Risk of malignancy 2%-5%. Nodules 1.5 cm or greater follow up at 1, 3 and 5 years recommended, for nodules 2.5 cm or greater FNA recommended. 4. TI-RADS 4: Risk of malignancy 5%-20% Nodules 1.0 cm or greater follow up at 1, 2, 3 and 5 years recommended, for nodules 1.5 cm or greater FNA recommended 5. TI-RADS 5: Risk of malignancy >20%. Nodules 0.5 cm or greater annual follow up for 5 years recommended, for nodules 1.0 cm or greater FNA recommended. The ACT TI-RADS committee recommends targeting no more than two nodules for FNA. If three or more nodules meet criteria for FNA, the two with the most suspicious appearance based on ACR TI-RADS points should be sampled. THIS IS AN ELECTRONICALLY VERIFIED FINAL REPORT 11/04/2024 7:06 AM - Electronically signed by Cesar Lamar D.O. AP: AP Report ID: [id number] Reading Location: [id number] Procedure Note Willard Cesar, DO - 11/04/2024 EXAM DESCRIPTION: US THYROID REASON FOR STUDY: enlarged thyroid TECHNIQUE: Ultrasound of the thyroid was performed with grayscale andcolor doppler. COMPARISON: None available. FINDINGS: RIGHT: The right thyroid lobe measures 5.2 x 1.7 x 1.8 cm.Mild heterogeneous echotexture. On gross visual inspection along the lowerpole is a 0.6 cm hypoechoic nodule (TR 4). Similar hypoechoic midpole nodule measuring 0.3 cm (TR 4). LEFT: The left thyroid lobe measures 4.8 x 1.9 x 1.5 cm. Mildheterogeneous echotexture. On gross visual inspection there is a 0.5 cm hypoechoicnodule (TR 4). ISTHMUS: The isthmus measures 0.4 cm in AP dimension. No focal measured nodule. IMPRESSION: A few subcentimeter thyroid nodules as above and not meetcriteria for fine-needle aspiration at this time. ACR TI-RADS Risk Category: 4 REFERENCE: According to the ACR Thyroid Imaging, Reporting and Data System (TI-RADS): White Paper of the ACR TI-RADS Committee Oct, 2016recommendations regarding the management of thyroid nodules are as follows: 1. TI-RADS 1: Risk of malignancy <2%, no FNA or follow up required. 2. TI-RADS 2: Risk of malignancy <2%, no FNA or follow up required. 3. TI-RADS 3: Risk of malignancy 2%-5%. Nodules 1.5 cm or greater followup at 1, 3 and 5 years recommended, for nodules 2.5 cm or greater FNArecommended. 4. TI-RADS 4: Risk of malignancy 5%-20% Nodules 1.0 cm or greater followup at 1, 2, 3 and 5 years recommended, for nodules 1.5 cm or greater FNA recommended 5. TI-RADS 5: Risk of malignancy >20%. Nodules 0.5 cm or greater annual follow up for 5 years recommended, for nodules 1.0 cm or greater FNA recommended. The ACT TI-RADS committee recommends targeting no more than two nodulesfor FNA. If three or more nodules meet criteria for FNA, the two with themost suspicious appearance based on ACR TI-RADS points should be sampled. THIS IS AN ELECTRONICALLY VERIFIED FINAL REPORT 11/04/2024 7:06 AM - Electronically signed by Cesar Lamar D.O. AP: ARLEN Report ID: [id number] Reading Location: [place] [address] Tara Perez [facility] IMG US PROCEDURES F inal Result * eGFR (10/23/2024 9:39 AM CDT) eGFR >90 >=60 mL/min/1. 73 m2 Comment: Interpretive Data Reference Interval Normal >/= 90 mL/min/1.73m2 Mildly decreased* 60 - 89 mL/min/1.73m2 Mildly to moderately decreased 45 - 59 mL/min/1.73m2 Moderately to severely decreased 30 - 44 mL/min/1.73m2 Severely decreased 15 - 29 mL/min/1.73m2 Kidney Failure < 15 mL/min/1.73m2 *Relative to young adult level Estimated glomerular filtration rate is determined by the 2020 CKD-EPI equation recommended by the National Kidney Foundation (A Unifying Approach to GFR Estimation: Recommendations of the NKF-ASK Task Force on Reassessing the Inclusion of Race in Diagnosing Kidney Disease, JASN 2020). The CKD-EPI equation should not be used for patients with unstable renal function and has not been validated in children and those over 70. Current interpretive data was last reviewed 2021. Blood 10/23/2024 9:39 AM CDT 10/23/2024 6:32 PM CDT us Tara Perez [facility] LAB BLOOD ORDERABLE S Final Result HOPE [address] [facility] Department [place] [address] * Differential, auto (10/23/2024 9:39 AM CDT) Neutrophil abs 5.10 1.50 - 6.50 K/cumm Imm gran abs 0.03 0.00 - 0.10 K/cumm [facility] Lymphocyte abs 1.78 0.80 - 3.30 K/cumm [facility] Monocyte abs 0.57 0.20 - 0.80 K/cumm [facility] Eosinophil abs 0.19 0.00 - 0.50 K/cumm [facility] Basophil abs 0.04 0.00 - 0.10 K/cumm [facility] Neutrophil pct 66.1 % [facility] Comment: Interpretive Data Percent cell count reference ranges are not reported, since discordance with absolute values may lead to misinterpretation of CBC data. Current Interpretive Data was last revised on 2017. Imm gran pct 0.4 % [facility] Comment: Interpretive Data Percent cell count reference ranges are not reported, since discordance with absolute values may lead to misinterpretation of CBC data. Current Interpretive Data was last revised on 2017. Lymphocyte pct 23.1 % [facility] Comment: Interpretive Data Percent cell count reference ranges are not reported, since discordance with absolute values may lead to misinterpretation of CBC data. Current Interpretive Data was last revised on 2017. Monocyte pct 7.4 % [facility] Comment: Interpretive Data Percent cell count reference ranges are not reported, since discordance with absolute values may lead to misinterpretation of CBC data. Current Interpretive Data was last revised on 2017. Eosinophil pct 2.5 % [facility] Comment: Interpretive Data Percent cell count reference ranges are not reported, since discordance with absolute values may lead to misinterpretation of CBC data. Current Interpretive Data was last revised on 2017. Basophil pct 0.5 % [facility] Comment: Interpretive Data Percent cell count reference ranges are not reported, since discordance with absolute values may lead to misinterpretation of CBC data. Current Interpretive Data was last revised on 2017. Blood 10/23/2024 9:39 AM CDT 10/23/2024 5:43 PM CDT Tara Perez [facility] LAB BLOOD ORDERABLE S Final Result Performing Organization Address City/[facility]/ZIP Co de Phone Number HOPE LAGUNAS [address] [facility] [facility] [place] [address] * Thyroid Function [place] (10/23/2024 9:39 AM CDT) Pathologist [facility] TSH 1.70 0.30 - 4.20 mcIUnit/mL Blood 10/23/2024 9:39 AM CDT 10/23/2024 5:43 PM CDT Tara Perez [facility] LAB BLOOD ORDERABLE S Final Result Performing Organization Address [facility] de Phone Number HOPE LAGU[place]S [address] [facility] [facility] [place] [address] * (ABNORMAL) CBC with auto differential (10/23/2024 9:39 AM CDT) Pathologist [facility] WBC 7.71 3.80 - 9.90 K/cumm Hgb 12.9 11.9 - 15.5 g/dL [facility] Hct 41.7 35.6 - 45.5 % [facility] Plt 161 150 - 400 K/cumm [facility] MPV 14.4(H) 9.1 - 12.3 fL [facility] RBC 4.50 3.90 - 5.20 M/cumm [facility] MCV 92.7 81.3 - 96.4 fL [facility] MCH 28.7 27.1 - 33.3 pg [facility] MCHC 30.9(L) 32.3 - 35.7 g/dL [facility] RDW CV 13.2 11.1 - 14.9 % [facility] RDW SD 44.4 35.7 - 48.1 fL [facility] NRBC abs 0.00 0.00 - 0.01 K/cumm [facility] Blood 10/23/2024 9:39 AM CDT 10/23/2024 5:43 PM CDT Tara Perez [facility] LAB BLOOD ORDERABLE S Final Result Performing Organization Address [facility] Co de Phone Number HOPE LAGU[place]S [address] [address] [place] [address] * Thyroid peroxidase antibody (TPO) (10/23/2024 9:39 AM CDT) Pathologist [facility] Anti Thyroid Peroxidase <30 <=34 IUnits/mL Comment: ATPO Interpretive Data Results may be up to 28% higher in patients receiving Itraconazole. Current interpretive data was last revised 2020. Testing performed by: [facility], [address] [place]., [address] Blood 10/23/2024 9:39 AM CDT 10/24/2024 10:26 AM CDT Tara Perez [facility] LAB BLOOD ORDERABLE S Final Result Performing Organization Address [facility] Co de Phone Number MLNADIYA LAGUNAS [address] [address] Department [place] [address] * (ABNORMAL) Vitamin D 25 hydroxy (10/23/2024 9:39 AM CDT) Pathologist [facility] Vitamin D 25-OH 16(L) 30 - 80 ng/mL Blood 10/23/2024 9:39 AM CDT 10/23/2024 5:43 PM CDT Tara Perez [facility] LAB BLOOD ORDERABLE S Final Result Performing Organization Address City/[facility] Co de Phone Number MLNADIYA LAGUNAS [address] [address] [place] [address] * Hemoglobin A1c (10/23/2024 9:39 AM CDT) Pathologist [facility] Hgb A1C 5.3 4.0 - 5.6 % Estimated Average Glucose 105 mg/dL [facility] Comment: The ADA recommends reporting an estimated Average Glucose (eAG) with all Hemoglobin A1c results using the equation derived from a study of 507 normal and diabetic adults. Minority populations were underrepresented and children were not included. (Diabetes Care 31:4643-3001, 2008). The eAG is not equivalent to a fasting glucose. Blood 10/23/2024 9:39 AM CDT 10/23/2024 5:43 PM CDT us Tara Riverajuanita Perez [facility] LAB BLOOD ORDERABLE S Final Result [facility] [place] [address] [address] Department [place] [address] * Lipid panel (10/23/2024 9:39 AM CDT) Cholesterol 186 30 - 199 mg/dL Comment: Interpretive Data Ages < or = 19 years Acceptable: <170 mg/dL Borderline high: 170-199 mg/dL High: >or= 200 mg/dL Ages > or = 20 years Desirable: <200 mg/dL Borderline high: 200-239 mg/dL High: >or= 240 mg/dL Literature References: 1. Expert Panel on Integrated Guidelines for Cardiovascular Health and Risk Reduction in Children and Adolescents. Pediatrics 2011;128:S213 2. NCEP Expert Panel. Circulation 2004;110:227 Current Interpretive Data was last revised on 2018. Triglycerides 53 <=149 mg/dL [facility] Comment: Interpretive Data Ages < or = 9 years Acceptable: <75 mg/dL Borderline high: 75-99 mg/dL High: >or= 100 mg/dL Ages 10 to 20 years Acceptable: <90 mg/dL Borderline high: 90-129 mg/dL High: >or= 130 mg/dL Ages > or = 20 years Desirable: <150 mg/dL Borderline high: 150-199 mg/dL High: 200-499 mg/dL Very high: >or= 499 mg/dL Literature References: 1. Expert Panel on Integrated Guidelines for Cardiovascular Health and Risk Reduction in Children and Adolescents. Pediatrics 2011;128:S213 2. NCEP Expert Panel. Circulation 2004;110:227 Current Interpretive Data was last revised on 2018. HDL 63 >=40 mg/dL [facility] Comment: Interpretive Data Ages < or = 19 years Acceptable: >45 mg/dL Borderline low: 40-45 mg/dL Low: <40 mg/dL Ages > or = 20 years Desirable: >or= 60 mg/dL Low: <40 mg/dL Literature References: 1. Expert Panel on Integrated Guidelines for Cardiovascular Health and Risk Reduction in Children and Adolescents. Pediatrics 2011;128:S213 2. NCEP Expert Panel. Circulation 2004;110:227 Current Interpretive Data was last revised on 2018. LDL, calculated 113 <=129 mg/dL [facility] Comment: Interpretive Data Ages < or = 19 years Acceptable: <110 mg/dL Borderline high: 110-129 mg/dL High: >or= 130 mg/dL Ages > or = 20 years Optimal: <100 mg/dL Near optimal: 100-129 mg/dL Borderline high: 130-159 mg/dL High: >160 mg/dL Calculated using the Vikas LDL-C estimating equation. This equation was implemented on 2024. Prior to this date LDL-C was estimated using the Friedewald equation. Literature References: 1. Expert Panel on Integrated Guidelines for Cardiovascular Health and Risk Reduction in Children and Adolescents. Pediatrics 2011;128:S213 2. NCEP Expert Panel. Circulation 2004;110:227 3. Vikas M et al. TATYANA Cardiol. 2020 October 26;5(5):540-548. doi: 10.1001/jamacardio.2020.0013 Current Interpretive Data was last revised on 2024. Non-HDL Cholesterol 123 mg/dL [facility] Comment: Interpretive Data Ages < or = 19 years Acceptable: <120 mg/dL Borderline high: 120-144 mg/dL High: >145 mg/dL Ages > or = 20 years When triglycerides are >200 mg/dL, Non-HDL cholesterol is a secondary target of therapy with treatment goals that are 30 mg/dL greater than the LDL cholesterol target. Literature References: 1. Expert Panel on Integrated Guidelines for Cardiovascular Health and Risk Reduction in Children and Adolescents. Pediatrics 2011;128:S213 2. NCEP Expert Panel. Circulation 2004;110:227 Current Interpretive Data was last revised on 2018. Chol/HDL ratio 3 [facility] Blood 10/23/2024 9:39 AM CDT 10/23/2024 5:43 PM CDT [facility] LAB BLOOD [place] [id number] [address] Department [place] [address] * (ABNORMAL) Comprehensive metabolic panel (10/23/2024 9:39 AM CDT) Sodium 136 135 - 145 mmol/L Potassium, pl 4.1 3.3 - 4.9 mmol/L [facility] Chloride 103 97 - 110 mmol/L [facility] CO2 21(L) 22 - 32 mmol/L [facility] Anion gap 12 2 - 15 mmol/L [facility] BUN 7 6 - 25 mg/dL [facility] Creatinine 0.67 0.60 - 1.10 mg/dL [facility] Glucose 87 70 - 199 mg/dL [facility] Comment: Interpretive Data Fasting glucose >/= 126 mg/dl is diagnostic for diabetes. Fasting is defined as no caloric intake for at least 8 hours. Fasting glucose between 100 mg/dl to 125 mg/dl is diagnostic of prediabetes. In a patient with classic symptoms of hyperglycemia or hyperglycemic crisis, a random glucose >/= 200 mg/dl is diagnostic for diabetes. In the absence of unequivocal hyperglycemia, results should be confirmed by repeat testing. The classification and Diagnosis of Diabetes Diabetes Care 2021; 46: S19-S40. Current interpretive data was last revised 2022. Calcium 9.1 8.5 - 10.3 mg/dL [facility] Bilirubin, total 0.3 0.1 - 1.2 mg/dL [facility] Protein, pl 7.6 6.5 - 8.5 g/dL [facility] Albumin 4.1 3.5 - 5.0 g/dL [facility] Alk phos 99 40 - 130 Units/L [facility] ALT 15 7 - 45 Units/L [facility] AST 26 10 - 45 Units/L [facility] Blood 10/23/2024 9:39 AM CDT 10/23/2024 5:43 PM CDT [facility] LAB BLOOD ORDERABLE S Final Result Performing Organization Address [facility] de Phone Number [facility] [id number] [place] [address] * Thyroglobulin antibodies (10/23/2024 9:21 AM CDT) Anti-thyroglobulin <1.8 <4.0 IUnits/mL [facility] Comment: ADDITIONAL INFORMATION PLEASE NOTE: The given thyroglobulin antibody (TgAb) reference cutoff of <4.0 IU/mL is for the evaluation of autoimmune thyroiditis. A cutoff of <1.8 IU/mL may be more suitable for the detection of potential thyroglobulin antibody (TgAb) interference in thyroglobulin immunoassays. The thyroglobulin antibody testing method is an immunoenzymatic assay manufactured by [employer] and performed on the [employer] DXI 800. Values obtained from different assay methods or kits may be different and cannot be used interchangeably. The results cannot be interpreted as absolute evidence for the presence or absence of malignant disease. Test Performed by: [place] [address] Engine Test Cell Technician: Grayson Torres Ph.D.; CLIA# [id number] Blood 10/23/2024 9:21 AM CDT 10/23/2024 2:18 PM CDT Tara Riverajuanita Perez [facility] LAB BLOOD ORDERABLE S Final Result Performing Organization Address [facility] de Phone Number [facility] [id number] [address] [employer] [place] [address] [facility] * (ABNORMAL) Urinalysis reflex to microscopic and culture Urine, clean voided (10/23/2024 9:21 AM CDT) Color, ur Other(A) Yellow Clarity, ur Turbid(A) Clear [facility] Specific gravity, ur 1.010 1.003 - 1.030 [facility] pH, urine 7.0 [facility] Comment: Interpretive Data U rine pH is affected by diet, medications, systemic acid-base disturbances, and renal tubular function. pH may affect urinary stone formation. For example, urine pH below 6.0 may help reduce the tendency for calcium phosphate stones and pH greater than 6.0 may reduce the tendency for uric acid stone formation. Source: [facility] Current Interpretive Data was last revised on 2017 Protein, ur ql Trace Negative [facility] Glucose, ur ql Negative Negative [facility] Ketones, ur Negative Negative [facility] Bilirubin, ur Negative Negative [facility] Blood, ur 3+(A) Negative [facility] Urobilinogen, ur <2.0 <2.0 mg/dL [facility] Nitrite, ur Negative Negative [facility] Leukocyte esterase, ur 2+(A) Negative [facility] UA reflex comment Reflex to microscopic UA will be performed. [facility] Urine, clean voided 10/23/2024 9:21 AM CDT 10/23/2024 2:24 PM CDT Narrative [facility] - 10/23/2024 2:43 PM CDT Urine Collection Method->Clean Catch Tara Perez [facility] LAB MICROBIOLOGY - GENERAL ORDERABLES Final Result Performing Organization Address City/[facility] Co de Phone Number [facility] [phone] [address] [place] [address] * (ABNORMAL) Urinalysis, microscopic only (10/23/2024 9:21 AM CDT) WBC, ur NONE 0 - 5 /HPF RBC, ur >50(A) 0 - 2 /HPF [facility] Epithelial cells, squamous, ur 1-5 0 - 5 /HPF [facility] Culture Reflex Comment Reflex conditions for urine culture (WBC >10) not met. [facility] Urine, clean voided 10/23/2024 9:21 AM CDT 10/23/2024 2:24 PM CDT Tara Perez [facility] LAB URINE ORDERABLE S Final Result Performing Organization Address City/[facility] Co de Phone Number [facility] [phone] [address] [place] [address] from Last 3 Months Insurance [facility] CHOICE [facility]US [facility] HMO/PPO Address: [facility] [id number] [id number] Care Teams Park Maintainer Relationship Specialty Start Date End Date Tara Perez DNP [address] [address] PCP - General Family Medicine 10/12/24
--- OUTSIDE RECORDS SUMMARY | 2024-11-28 19:13 | XMS_ITS | Encounter Summary ---
Author Organization [facility] Healthcare Address [address] [place] [address] Care Team Providers Care Circle Edger Name Role Phone Tara Perez DNP Primary Care Provi cielo Encounter Details Date Type Department Care Team (Late st Contact Info) Description 10/23/2024 Results Follow-Up [facility] Medical Group Family Medicine [address] [place] [address] [address] [place] [address] [place] [address] Urinalysis reflex to microscopic and culture Urine, clean voided, Urinalysis, microscopic only, Thyroid Function Perkins, Additional followed-up results: 7 Social History Tobacco Use Types Packs/Day Years [...] on file 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 Gender Identity Not on file Sexual Orientation Not on file documented as of this encounter Plan of Treatment Scheduled Orders Name Type Priority Associated Diagnoses Orde r Schedule Vitamin D 25 hydroxy Lab Routine Vitamin D deficiency Expected: 01/22/2025 (Approximate), Expires: 10/23/2025 documented as of this encounter Visit Diagnoses Diagnosis Vitamin D deficiency- Primary documented in this encounter Care Teams Circle Edger Relationship Specialty Start Date End Date Tara Perez DNP [address] [facility] [address] [address] [place] [place] [id number] PCP - General Family Medicine 10/12/24 documented as of this encounter
--- OUTSIDE RECORDS SUMMARY | 2024-11-28 19:13 | XMS_ITS | Encounter Summary ---
Author Organization [facility] Healthcare Address [address] [place] [address] Care Team Providers Care Home Care Coordinator Name Role Phone Tara Perez DNP Primary Care Provi cielo Encounter Details Date Type Department Care Team (Late st Contact Info) Description 11/17/2024 E-[address] 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
--- OUTSIDE RECORDS SUMMARY | 2024-11-28 19:13 | XMS_ITS | Clinical Summary ---
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 Baca Had CT yesterday at [facility] Sign release of information to obtain [...] on calories. Most people should eat between 7275-5787 calories to lose weight. Goal BMI is less than 30. A healthy BMI is considered between 19-25. Decrease your carbohydrate intake to less than 150 grams per day if possible and increase protein to help with hunger. Increase activity to 30 min 4-5 days a week of moderate aerobic activity and add strength training 2 times weekly, as tolerated. Consider using Presentain salvatore to track diet and exercise habits daily. Consider trying Weight Watcher program to make dietary changes. Visit www.dietaryguidelines.gov, www.myplate.gov, or www.health.gov for more dietary information and tips. Visit www.SurePeak or Connectbright.[employer] for online syrup maker covered by health insurance. If you need further help with weight loss please let me know. I would be happy to help. Start with asking your insurance company what medications they provide coverage for. Check with your insurance to see if they authorize dietitian services with www.SurePeak Assessment & Plan (10/12/2024 12:27 PM CDT): Your BMI is elevated. Try to cut back on calories. Most people should eat between 6774-9147 calories to lose weight. Goal BMI is less than 30. A healthy BMI is considered between 19-25. Decrease your carbohydrate intake to less than 150 grams per day if possible and increase protein to help with hunger. Increase activity to 30 min 4-5 days a week of moderate aerobic activity and add strength training 2 times weekly, as tolerated. Consider using Presentain salvatore to track diet and exercise habits daily. Consider trying Weight Watcher program to make dietary changes. Visit www.dietaryguidelines.gov, www.myplate.gov, or www.health.gov for more dietary information and tips. Visit wwwAdvanced Seismic Technologies or Met[employer]on for online syrup maker covered by health insurance. If you need further help with weight loss please let me know. I would be happy to help. Start with asking your insurance company what medications they provide coverage for. Check with your insurance to see if they authorize dietitian services with wwwAdvanced Seismic Technologies Some medications to ask about include phentermine, Qsymia, Contrave, Xenical, Wegovy, Zepbound. Bilateral impacted cerumen 10/12/2024 Assessment & Plan (10/12/2024 12:28 PM CDT): Use Debrox drops as prescribed Chronic sinusitis 10/05/2024 Assessment & Plan (10/12/2024 12:25 PM CDT): Managed by ENT, Dr. Baca Had CT yesterday at [facility] Sign release of information to obtain records Take cetirizine 10 mg daily Use Flonase daily Hypertrophy of nasal turbinates 10/05/2024 Assessment & Plan (10/12/2024 12:25 PM CDT): Managed by ENT, Dr. Baca Had CT yesterday at [facility] Sign release of information to obtain records Take cetirizine 10 mg daily Use Flonase daily Encounters Date Type Department Care Team Description 11/20/2024 Results Follow-Up [address] [place] [address] Tara Perez DNP Thyroid peroxidase antibody (TPO) 11/17/2024 E-Visit [address] [place] [phone] Tara Perez DNP Referral Correction 11/15/2024 11:33 AM CDT - 11/15/2024 11:59 PM CDT Hospital Encounter [address] [address] Thyroid disorder screen; Abnormal thyroid ultrasound Discharge Disposition: Discharge to home or self care 11/15/2024 11:30 AM CDT Lab [facility] at [address] [phone] 11/14/2024 9:30 AM CDT Office Visit [address] [place] [phone] Tara Perez DNP Encounter to discuss test results (Primary Dx); Multiple thyroid nodules; Abnormal thyroid ultrasound; Class 1 obesity without serious comorbidity with body mass index (BMI) of 34.0 to 34.9 in adult, unspecified obesity type 11/06/2024 Results Follow-Up [address] [place] [phone] Tara Perez DNP US Thyroid 10/25/2024 7:10 AM CDT - 10/25/2024 11:59 PM CDT Hospital Encounter [facility] Ultrasound [address] [place] [address] Enlarged thyroid Discharge Disposition: Discharge to home or self care 10/23/2024 9:30 AM CDT Lab [facility] Lab at [address] [phone] Annual physical exam (Primary Dx) 10/23/2024 9:21 AM CDT - 10/23/2024 11:59 PM CDT Hospital Encounter [address] [address] Thyroid disorder screen; Annual physical exam; Encounter for long-term (current) use of medications; Lipid screening; Screening for diabetes mellitus; Encounter for vitamin deficiency screening Discharge Disposition: Discharge to home or self care 10/23/2024 Results Follow-Up [address] [place] [address] Tara Perez DNP Urinalysis reflex to microscopic and culture Urine, clean voided, Urinalysis, microscopic only, Thyroid Function Evans, Additional followed-up results: 7 10/20/[address] [place] [address] Tara Perez DNP Med Refill 10/12/2024 9:30 AM CDT Office Visit [address] [place] [address] Tara Perez DNP Annual physical exam (Primary [...] unspecified obesity type from Last 3 Months Medical History Medical History Date Comments Vaginal delivery 3rd degree tear Family History Medical History Relation Name Comments Prostate cancer Father Thyroid disease Father Diabetes Maternal Grandmother Crohn's disease Mother Diabetes Paternal Grandmother Relation Name Status Comments Father Maternal Grandmother Mother Paternal Grandmother Social History Tobacco Use Types Packs/Day Years [...] on file 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 Gender Identity Not on file Sexual Orientation Not on file Obstetrics History Para Term AB IAB SAB Ectopic Multiple Livin g Live Births 1 1 Date Outcome GA Total Labor Labor/2nd/3rd Weight Sex Type Anes PTL Emily A1 A5 Name Clin Para Last Filed Vital Signs Vital Sign Reading [...] 11/14/2024 9:25 AM CDT Plan of Treatment Health Maintenance Due Date Last Done Comments Cervical Cancer Screening 1990 Hepatitis C Screening 1990 Varicella Vaccines (1 of 2 - 13+ 2-dose series) 2003 Hepatitis B Screening 2008 Covid-19 Vaccine (3 - 2023-2 5 season) 2024 10/16/2020, 09/11/2020 Influenza Vaccine (Season Ended) 2025 Depression Screening 10/12/2025 10/12/2024 Regular Well Visit/Exam 18-64 10/12/2025 10/12/2024 DTaP/Tdap/Td Vaccine (2 - Td or Tdap) 10/28/2033 10/29/2023 HPV Vaccines Aged Out No longer eligi ble based on patient's age to complete this topic Pneumococcal vaccine <65 Aged Out No longer eligible based on patient's age to complete this topic Procedures Procedure Name Priority Date/Time Associated Diagnosis [...] 11:33 AM CDT) Anti-thyroglobulin <1.8 <4.0 IUnits/mL [facility] Comment: ADDITIONAL INFORMATION PLEASE NOTE: The given thyroglobulin antibody (TgAb) reference cutoff of <4.0 IU/mL is for the evaluation of autoimmune thyroiditis. A cutoff of <1.8 IU/mL may be more suitable for the detection of potential thyroglobulin antibody (TgAb) interference in thyroglobulin immunoassays. The thyroglobulin antibody testing method is an immunoenzymatic assay manufactured by [employer] and performed on the [employer] DXI 800. Values obtained from different assay methods or kits may be different and cannot be used interchangeably. The results cannot be interpreted as absolute evidence for the presence or absence of malignant disease. Test Performed by: [facility] - [address] [address] Blacksmith Apprentice: Grayson Torres Ph.D.; CLIA# [id number] Blood 11/15/2024 11:3 3 AM CDT 11/15/2024 9:37 PM CDT us Tara Perez DNP LAB BLOOD ORDERABLE S Final Result [facility] [address] [address] [place] [address] [place] [facility] * Thyroid peroxidase antibody (TPO) (11/15/2024 11:33 AM CDT) Anti Thyroid Peroxidase <30 <=34 IUnits/mL Comment: ATPO Interpretive Data Results may be up to 28% higher in patients receiving Itraconazole. Current interpretive data was last revised 2020. Testing performed by: [facility], [address] [place]., [address] Blood 11/15/2024 11:3 3 AM CDT 11/16/2024 10:02 AM CDT us Tara Azartead [facility] LAB BLOOD [place] [address] [address] [place] [address] * US Thyroid (10/25/2024 7:43 AM CDT) [...] Cesar Lamar D.O. AP: ARLEN Report ID: [id number] Reading Location: [id number] Procedure Note Cesar Lamar, DO - 11/04/2024 EXAM DESCRIPTION: US THYROID [...] Cesar Lamar D.O. AP: AP Report ID: [id number] Reading Location: [place] [address] us Tara Perez [facility] IMG US PROCEDURES F inal Result * [...] CDT 10/23/2024 6:32 PM CDT us Tara Isis Perez [facility] LAB BLOOD ORDERABLE S Final Result [facility] [address] [address] Department [place] [address] * Differential, auto (10/23/2024 9:39 AM CDT) Pathologist [facility] Neutrophil abs 5.10 1.50 - 6.50 K/cumm Imm gran abs 0.03 0.00 - 0.10 K/cumm [facility] Lymphocyte abs 1.78 0.80 - 3.30 K/cumm [facility] Monocyte abs 0.57 0.20 - 0.80 K/cumm [facility] Eosinophil abs 0.19 0.00 - 0.50 K/cumm [facility] Basophil abs 0.04 0.00 - 0.10 K/cumm [facility] Neutrophil pct 66.1 % [facility] Comment: Interpretive Data Percent cell count reference ranges are not reported, since discordance with absolute values may lead to misinterpretation of CBC data. Current Interpretive Data was last revised on 2017. Imm gran pct 0.4 % [facility] Comment: Interpretive Data Percent cell count reference ranges are not reported, since discordance with absolute values may lead to misinterpretation of CBC data. Current Interpretive Data was last revised on 2017. Lymphocyte pct 23.1 % [facility] Comment: Interpretive Data Percent cell count reference ranges are not reported, since discordance with absolute values may lead to misinterpretation of CBC data. Current Interpretive Data was last revised on 2017. Monocyte pct 7.4 % [facility] Comment: Interpretive Data Percent cell count reference ranges are not reported, since discordance with absolute values may lead to misinterpretation of CBC data. Current Interpretive Data was last revised on 2017. Eosinophil pct 2.5 % [facility] Comment: Interpretive Data Percent cell count reference ranges are not reported, since discordance with absolute values may lead to misinterpretation of CBC data. Current Interpretive Data was last revised on 2017. Basophil pct 0.5 % [facility] Comment: Interpretive Data Percent cell count reference ranges are not reported, since discordance with absolute values may lead to misinterpretation of CBC data. Current Interpretive Data was last revised on 2017. Blood 10/23/2024 9:39 AM CDT 10/23/2024 5:43 PM CDT Tara Perez [facility] LAB BLOOD ORDERABLE S Final Result Performing Organization Address [facility] Co de Phone Number [facility]NET[facility] [phone] [address] Department [place] [address] * Thyroid Function Evans (10/23/2024 9:39 AM CDT) TSH 1.70 0.30 - 4.20 mcIUnit/mL Blood 10/23/2024 9:39 AM CDT 10/23/2024 5:43 PM CDT Tara Perez [facility] LAB BLOOD ORDERABLE S Final Result Performing Organization Address City/[facility] Co de Phone Number [facility] [place] [phone] [address] Department [place] [address] * (ABNORMAL) CBC with auto differential (10/23/2024 9:39 AM CDT) Pathologist [facility] WBC 7.71 3.80 - 9.90 K/cumm Hgb 12.9 11.9 - 15.5 g/dL [facility] Hct 41.7 35.6 - 45.5 % [facility] Plt 161 150 - 400 K/cumm [facility] MPV 14.4(H) 9.1 - 12.3 fL [facility] RBC 4.50 3.90 - 5.20 M/cumm [facility] MCV 92.7 81.3 - 96.4 fL [facility] MCH 28.7 27.1 - 33.3 pg [facility] MCHC 30.9(L) 32.3 - 35.7 g/dL [facility] CH RDW CV 13.2 11.1 - 14.9 % [facility] RDW SD 44.4 35.7 - 48.1 fL [facility] NRBC abs 0.00 0.00 - 0.01 K/cumm [facility] Blood 10/23/2024 9:39 AM CDT 10/23/2024 5:43 PM CDT Tara Perez [facility] LAB BLOOD ORDERABLE S Final Result [facility] [address] [address] Department [place] [address] * Thyroid peroxidase antibody (TPO) (10/23/2024 9:39 AM CDT) Pathologist [facility] Anti Thyroid Peroxidase <30 <=34 IUnits/mL Comment: ATPO Interpretive Data Results may be up to 28% higher in patients receiving Itraconazole. Current interpretive data was last revised 2020. Testing performed by: [facility], [address] [facility], [place]., [address] Blood 10/23/2024 9:39 AM CDT 10/24/2024 10:26 AM CDT Tara Perez [facility] LAB BLOOD ORDERABLE S Final Result Performing Organization Address City/[facility]/ZIP Co de Phone Number [facility] [phone] [address] [place], [place] [id number] * (ABNORMAL) Vitamin D 25 hydroxy (10/23/2024 9:39 AM CDT) Pathologist [facility] Vitamin D 25-OH 16(L) 30 - 80 ng/mL Blood 10/23/2024 9:39 AM CDT 10/23/2024 5:43 PM CDT Tara Perez [facility] LAB BLOOD ORDERABLE S Final Result Performing Organization Address [facility] [[email or web address]] de Phone Number [facility]S [address] [address] [facility] [place] [address] * Hemoglobin A1c (10/23/2024 9:39 AM CDT) [facility] Hgb A1C 5.3 4.0 - 5.6 % Estimated Average Glucose 105 mg/dL [facility] Comment: The ADA recommends reporting an estimated Average Glucose (eAG) with all Hemoglobin A1c results using the equation derived from a study of 507 normal and diabetic adults. Minority populations were underrepresented and children were not included. (Diabetes Care 31:8909-5537, 2008). The eAG is not equivalent to a fasting glucose. Blood 10/23/2024 9:39 AM CDT 10/23/2024 5:43 PM CDT Tara Perez [facility] LAB BLOOD ORDERABLE S Final Result Performing Organization Address City/[facility]/ZIP Co de Phone Number MLNADIYA LAGUNAS [phone] [address] [facility] [place] [address] * Lipid panel (10/23/2024 9:39 AM CDT) [facility] Cholesterol 186 30 - 199 mg/dL Comment: [...] on 2018. Triglycerides 53 <=149 mg/dL [facility] Comment: Interpretive Data Ages < [...] revised on 2018. HDL 63 >=40 mg/dL [facility] Comment: Interpretive Data Ages < or = [...] 2018. LDL, calculated 113 <=129 mg/dL [facility] Comment: Interpretive Data Ages < or = 19 years Acceptable: <110 mg/dL Borderline high: 110-129 mg/dL High: >or= 130 mg/dL Ages > or = 20 years Optimal: <100 mg/dL Near optimal: 100-129 mg/dL Borderline high: 130-159 mg/dL High: >160 mg/dL Calculated using the Bean LDL-C estimating equation. This equation was implemented on 2024. Prior to this date LDL-C was estimated using the Friedewald equation. Literature References: 1. Expert Panel on Integrated Guidelines for Cardiovascular Health and Risk Reduction in Children and Adolescents. Pediatrics 2011;128:S213 2. NCEP Expert Panel. Circulation 2004;110:227 3. Vikas Molina et al. TATYANA Cardiol. 2020 October 26;5(5):540-548. doi: 10.1001/jamacardio.2020.0013 Current Interpretive Data was last revised on 2024. Non-HDL Cholesterol 123 mg/dL [facility] Comment: Interpretive Data Ages < or = [...] last revised on 2018. Chol/HDL ratio 3 [facility] Blood 10/23/2024 9:39 AM CDT 10/23/2024 5:43 PM CDT Tara Riverajuanita Perez [facility] LAB BLOOD ORDERABLE S Final Result [facility] [address] [address] Department [place] [address] * (ABNORMAL) Comprehensive metabolic panel (10/23/2024 9:39 [...] classification and Diagnosis of Diabetes Diabetes Care 202; 46: S19-S40. Current interpretive data was last [...] CDT 10/23/2024 5:43 PM CDT us Tara Perez [facility] LAB BLOOD ORDERABLE S Final Result [facility] [address] [address] Department [place] [address] * Thyroglobulin antibodies (10/23/2024 9:21 AM CDT) Anti-thyroglobulin <1.8 <4.0 IUnits/mL [place] [facility] Comment: ADDITIONAL INFORMATION PLEASE NOTE: The given thyroglobulin antibody (TgAb) reference cutoff of <4.0 IU/mL is for the evaluation of autoimmune thyroiditis. A cutoff of <1.8 IU/mL may be more suitable for the detection of potential thyroglobulin antibody (TgAb) interference in thyroglobulin immunoassays. The thyroglobulin antibody testing method is an immunoenzymatic assay manufactured by [employer] and performed on the [employer] DXI 800. Values obtained from different assay methods or kits may be different and cannot be used interchangeably. The results cannot be interpreted as absolute evidence for the presence or absence of malignant disease. Test Performed by: [facility] [address] [place] [address] Blacksmith Apprentice: Grayson Torres Ph.D.; CLIA# [id number] Blood 10/23/2024 9:21 AM CDT 10/23/2024 2:18 PM CDT us Tara Marinelli Ana [facility] LAB BLOOD ORDERABLE S Final Result [facility] [address] [address] Department [place] [address] [place] [facility] * (ABNORMAL) Urinalysis reflex to microscopic and culture Urine, clean voided (10/23/2024 9:21 AM CDT) Color, ur Other(A) Yellow Clarity, ur Turbid(A) Clear [facility] Specific gravity, ur 1.010 1.003 - 1.030 [facility] pH, urine 7.0 [facility] Comment: Interpretive Data U rine pH is affected by diet, medications, systemic acid-base disturbances, and renal tubular function. pH may affect urinary stone formation. For example, urine pH below 6.0 may help reduce the tendency for calcium phosphate stones and pH greater than 6.0 may reduce the tendency for uric acid stone formation. Source: [facility] Current Interpretive Data was last [...] Reflex to microscopic UA will be performed. [facility] Urine, clean voided 10/23/2024 9:21 AM CDT 10/23/2024 2:24 PM CDT Narrative [facility] - 10/23/2024 2:43 PM CDT Urine Collection Method->Clean Catch Tara Perez [facility] LAB MICROBIOLOGY - GENERAL ORDERABLES Final Result Performing Organization Address [facility]/ZIP Co de Phone Number [facility] [address] [address] Department of Laboratories [place], [place] [phone] * (ABNORMAL) Urinalysis, microscopic only (10/23/2024 9:21 AM CDT) WBC, ur NONE 0 - 5 /HPF RBC, ur >50(A) 0 - 2 /HPF [facility] Epithelial cells, squamous, ur 1-5 0 - 5 /HPF [facility] Culture Reflex Comment Reflex conditions for urine culture (WBC >10) not met. [facility] Urine, clean voided 10/23/2024 9:21 AM CDT 10/23/2024 2:24 PM CDT Tara Perez [facility] LAB URINE ORDERABLE S Final Result Performing Organization Address [facility] [[email or web address]] de Phone Number HOPE LAGUNAS [phone] [address] [place] [address] from Last 3 Months Insurance [facility] H[facility]/PPO Address: 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
[2024-11-28 19:14] VITALS: BP 124/71; PULSE 81; RESP 16; TEMP 36.3; O2SAT 99
--- OUTSIDE RECORDS SUMMARY | 2024-11-28 19:53 | XMS_ITS | Clinical Summary ---
Author Organization [facility] Address [address] [place] [address] Care Team Providers Care Director Family Name Role Phone Tara Perez [facility] Primary Care Provi cielo Allergies No known [...] ENT, Dr. Baca Had CT yesterday at [facility] Sign release of information to obtain [...] on calories. Most people should eat between 1719-9885 calories to lose weight. Goal BMI is less than 30. A healthy BMI is considered between 19-25. Decrease your carbohydrate intake to less than 150 grams per day if possible and increase protein to help with hunger. Increase activity to 30 min 4-5 days a week of moderate aerobic activity and add strength training 2 times weekly, as tolerated. Consider using [employer]XL [employer] salvatore to track diet and exercise habits daily. Consider trying Weight Watcher program to make dietary changes. Visit www.dietaryguidelines.gov, www.myplate.gov, or www.health.gov for more dietary information and tips. Visit www.[employer]ang[employer] or [employer] for online engineer rf deployment covered by health insurance. If you need further help with weight loss please let me know. I would be happy to help. Start with asking your insurance company what medications they provide coverage for. Check with your insurance to see if they authorize dietitian services with www.[place] Assessment & Plan (10/12/2024 12:27 PM CDT): Your BMI is elevated. Try to cut back on calories. Most people should eat between 7174-8879 calories to lose weight. Goal BMI is less than 30. A healthy BMI is considered between 19-25. Decrease your carbohydrate intake to less than 150 grams per day if possible and increase protein to help with hunger. Increase activity to 30 min 4-5 days a week of moderate aerobic activity and add strength training 2 times weekly, as tolerated. Consider using QXL [employer] salvatore to track diet and exercise habits daily. Consider trying Weight Watcher program to make dietary changes. Visit www.dietaryguidelines.gov, www.myplate.gov, or www.health.gov for more dietary information and tips. Visit wwwMediaTrove or [employer] for online engineer rf deployment covered by health insurance. If you need further help with weight loss please let me know. I would be happy to help. Start with asking your insurance company what medications they provide coverage for. Check with your insurance to see if they authorize dietitian services with wwwMediaTrove Some medications to ask about include phentermine, Qsymia, Contrave, Xenical, Wegovy, Zepbound. Bilateral impacted cerumen 10/12/2024 Assessment & Plan (10/12/2024 12:28 PM CDT): Use Debrox drops as prescribed Chronic sinusitis 10/05/2024 Assessment & Plan (10/12/2024 12:25 PM CDT): Managed by ENT, Dr. Baca Had CT yesterday at [facility] Sign release of information to obtain records Take cetirizine 10 mg daily Use Flonase daily Hypertrophy of nasal turbinates 10/05/2024 Assessment & Plan (10/12/2024 12:25 PM CDT): Managed by ENT, Dr. Baca Had CT yesterday at [facility] Sign release of information to obtain records Take cetirizine 10 mg daily Use Flonase daily Encounters Date Type Department Care Team Description 11/20/2024 Results Follow-Up [address] [place] [address] Tara Perez DNP Thyroid peroxidase antibody (TPO) 11/17/2024 E-Visit [address] [place] [phone] Tara Perez DNP Referral Correction 11/15/2024 11:33 AM CDT - 11/15/2024 11:59 PM CDT Hospital Encounter [address] [address] Thyroid disorder screen; Abnormal thyroid ultrasound Discharge Disposition: Discharge to home or self care 11/15/2024 11:30 AM CDT Lab [facility] Out[facility] Lab at [address] [address] 11/14/2024 9:30 AM CDT Office Visit [address] [place] [phone] Tara Perez DNP Encounter to discuss test results (Primary Dx); Multiple thyroid nodules; Abnormal thyroid ultrasound; Class 1 obesity without serious comorbidity with body mass index (BMI) of 34.0 to 34.9 in adult, unspecified obesity type 11/06/2024 Results Follow-Up [address] [place] [phone] Tara Perez DNP US Thyroid 10/25/2024 7:10 AM CDT - 10/25/2024 11:59 PM CDT Hospital Encounter [facility] Ultrasound [address] [place] [address] Enlarged thyroid Discharge Disposition: Discharge to home or self care 10/23/2024 9:30 AM CDT Lab [facility] Outpatient Lab at [address] [address] Annual physical exam (Primary Dx) 10/23/2024 9:21 AM CDT - 10/23/2024 11:59 PM CDT Hospital Encounter [address] [address] Thyroid disorder screen; Annual physical exam; Encounter for long-term (current) use of medications; Lipid screening; Screening for diabetes mellitus; Encounter for vitamin deficiency screening Discharge Disposition: Discharge to home or self care 10/23/2024 Results Follow-Up [address] [place] [address] Tara Perez DNP Urinalysis reflex to microscopic and culture Urine, clean voided, Urinalysis, microscopic only, Thyroid Function [place], Additional followed-up results: 7 10/20/[address] [place] [address] Tara Perez DNP Med Refill 10/12/2024 9:30 AM CDT Office Visit [address] [place] [address] Tara Perez DNP Annual physical exam (Primary [...] on file 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 A cutoff of <1.8 IU/mL may be more suitable for the detection of potential thyroglobulin antibody (TgAb) interference in thyroglobulin immunoassays. The thyroglobulin antibody testing method is an immunoenzymatic assay manufactured by [employer] and performed on the [employer] DXI 800. Values obtained from different assay methods or kits may be different and cannot be used interchangeably. The results cannot be interpreted as absolute evidence for the presence or absence of malignant disease. Test Performed by: [facility] - [address] [address] Full Service Supervisor: Gryason Torres Ph.D.; CLIA# [id number] Blood 11/15/2024 11:3 3 AM CDT 11/15/2024 9:37 PM CDT us Tara Perez DNP LAB BLOOD ORDERABLE S Final Result [facility] [address] [address] Department [place] [address] [address] [place] ref Lab * Thyroid peroxidase antibody (TPO) (11/15/2024 11:33 AM CDT) Anti Thyroid Peroxidase <30 <=34 IUnits/mL Comment: ATPO Interpretive Data Results may be up to 28% higher in patients receiving Itraconazole. Current interpretive data was last revised 2020. Testing performed by: [facility], [address] [place]., [address] Blood 11/15/2024 11:3 3 AM CDT 11/16/2024 10:02 AM CDT us Tara Azartead [facility] LAB [place]LOOD [place] [address] [address] Department [place] [address] * US Thyroid (10/25/2024 7:43 AM CDT) [...] Cesar Lamar D.O. AP: ARLEN Report ID: [id number] Reading Location: [id number] Procedure Note Cesar Lamar, DO - 11/04/2024 [...] Cesar Lamar D.O. AP: AP Report ID: [id number] Reading Location: [place] [address] [facility] IMG US PROCEDURES F inal Result * [...] 6:32 PM CDT us Tara Isis Perez [facility] LAB BLOOD ORDERABLE S Final Result [facility] [address] [address] Department [place] [address] * Differential, auto (10/23/2024 9:39 AM CDT) Pathologist [facility] Neutrophil abs 5.10 1.50 - 6.50 K/cumm Imm gran abs 0.03 0.00 - 0.10 K/cumm [facility] Lymphocyte abs 1.78 0.80 - 3.30 K/cumm [facility] Monocyte abs 0.57 0.20 - 0.80 K/cumm [facility] Eosinophil abs 0.19 0.00 - 0.50 K/cumm [facility] Basophil abs 0.04 0.00 - 0.10 K/cumm [facility] Neutrophil pct 66.1 % [facility] Comment: Interpretive Data Percent cell count [...] revised on 2017. Basophil pct 0.5 % [facility] Comment: Interpretive Data Percent cell count reference ranges are not reported, since discordance with absolute values may lead to misinterpretation of CBC data. Current Interpretive Data was last revised on 2017. Blood 10/23/2024 9:39 AM CDT 10/23/2024 5:[address] [facility] LAB BLOOD ORDERABLE S Final Result Performing Organization Address [facility] Co de Phone Number [facility] JANNET[facility] [address] [address] [place] [address] * Thyroid Function [place] (10/23/2024 9:39 AM CDT) TSH 1.70 0.30 - 4.20 mcIUnit/mL Blood 10/23/2024 9:39 AM CDT 10/23/2024 5:[address] [facility] LAB BLOOD ORDERABLE S Final Result Performing Organization Address City/[facility] Co de Phone Number [facility] [place] [address] [address] Department [place] [address] * (ABNORMAL) CBC with auto differential (10/23/2024 9:39 AM CDT) Pathologist [facility] WBC 7.71 3.80 - 9.90 K/cumm Hgb 12.9 11.9 - 15.5 g/dL [facility] Hct 41.7 35.6 - 45.5 % [facility] Plt 161 150 - 400 K/cumm [facility] MPV 14.4(H) 9.1 - 12.3 fL [facility] RBC 4.50 3.90 - 5.20 M/cumm [facility] MCV 92.7 81.3 - 96.4 fL [facility] MCH 28.7 27.1 - 33.3 pg [facility] MCHC 30.9(L) 32.3 - 35.7 g/dL [facility] RDW CV 13.2 11.1 - 14.9 % [facility] RDW SD 44.4 35.7 - 48.1 fL [facility] NRBC abs 0.00 0.00 - 0.01 K/cumm [facility] Blood 10/23/2024 9:39 AM CDT 10/23/2024 5:[address] [facility] LAB BLOOD ORDERABLE S Final Result [facility] [address] [address] Department [place] [address] * Thyroid peroxidase antibody (TPO) (10/23/2024 9:39 AM CDT) Pathologist [facility] Anti Thyroid Peroxidase <30 <=34 IUnits/mL Comment: ATPO Interpretive Data Results may be up to 28% higher in patients receiving Itraconazole. Current interpretive data was last revised 2020. Testing performed by: [facility], [address] [facility], [place]., [address] Blood 10/23/2024 9:39 AM CDT 10/24/2024 10:26 [address] [facility] LAB BLOOD ORDERABLE S Final Result Performing Organization Address City/[facility]/ZIP Co de Phone Number [facility] [place] [address] [address] [employer] [place], [place] [id number] * (ABNORMAL) Vitamin D 25 hydroxy (10/23/2024 9:39 AM CDT) Pathologist [facility] Vitamin D 25-OH 16(L) 30 - 80 ng/mL Blood 10/23/2024 9:39 AM CDT 10/23/2024 5:[address]ara Perez [facility] LAB BLOOD ORDERABLE S Final Result Performing Organization Address [facility] de Phone Number [facility] [place] [address] [address] [facility] [place] [address] * Hemoglobin A1c (10/23/2024 9:39 AM CDT) [facility] Hgb A1C 5.3 4.0 - 5.6 % Estimated Average Glucose 105 mg/dL [facility] Comment: The ADA recommends reporting an estimated Average Glucose (eAG) with all Hemoglobin A1c results using the equation derived from a study of 507 normal and diabetic adults. Minority populations were underrepresented and children were not included. (Diabetes Care 31:8585-5486, 2008). The eAG is not equivalent to a fasting glucose. Blood 10/23/2024 9:39 AM CDT 10/23/2024 5:[address] [facility] LAB BLOOD ORDERABLE S Final Result Performing Organization Address City/[facility]/ZIP Co de Phone Number MLNADIYA LAGUNAS [address] [address] [facility] [place] [address] * Lipid panel (10/23/2024 9:39 AM CDT) [facility] Cholesterol 186 30 - 199 mg/dL Comment: [...] on 2018. HDL 63 >=40 mg/dL [facility] Comment: Interpretive Data Ages < [...] 10/23/2024 5:43 PM CDT Tara Riverajuanita Perez [facility] LAB BLOOD ORDERABLE S Final Result [facility] [address] [address] Department [place] [address] * (ABNORMAL) Comprehensive metabolic panel (10/23/2024 9:39 [...] 10/23/2024 5:43 PM CDT us Tara Perez [facility] LAB BLOOD ORDERABLE S Final Result [facility] [address] [address] Department [place] [address] * Thyroglobulin antibodies (10/23/2024 9:21 AM CDT) Anti-thyroglobulin <1.8 <4.0 IUnits/mL [place] [address] [place] ref Lab Comment: ADDITIONAL INFORMATION PLEASE NOTE: The given thyroglobulin antibody (TgAb) reference cutoff of <4.0 IU/mL is for the evaluation of autoimmune thyroiditis. A cutoff of <1.8 IU/mL may be more suitable for the detection of potential thyroglobulin antibody (TgAb) interference in thyroglobulin immunoassays. The thyroglobulin antibody testing method is an immunoenzymatic assay manufactured by [employer] and performed on the [employer] DXI 800. Values obtained from different assay methods or kits may be different and cannot be used interchangeably. The results cannot be interpreted as absolute evidence for the presence or absence of malignant disease. Test Performed by: [facility] [address] [place] [address] Full Service Supervisor: Grayson Torres Ph.D.; CLIA# [id number] Blood 10/23/2024 9:21 AM CDT 10/23/2024 2:18 PM CDT us Tara Marinelli Ana [facility] LAB BLOOD ORDERABLE S Final Result [facility] [address] [address] Department [place] [address] [place] ref Lab * (ABNORMAL) Urinalysis reflex to [...] tendency for uric acid stone formation. Source: [facility] Current Interpretive Data was last revised on [...] CDT Urine Collection Method->Clean Catch Tara Perez [facility] LAB MICROBIOLOGY - GENERAL ORDERABLES Final Result Performing Organization Address [facility]/ZIP Co de Phone Number [facility] [address] [address] Department of Laboratories [place], [place] [phone] * (ABNORMAL) Urinalysis, microscopic only (10/23/2024 9:21 AM CDT) WBC, ur NONE 0 - 5 /HPF RBC, ur >50(A) 0 - 2 /HPF [facility] Epithelial cells, squamous, ur 1-5 0 - 5 /HPF [facility] Culture Reflex Comment Reflex conditions for urine culture (WBC >10) not met. [facility] Urine, clean voided 10/23/2024 9:21 AM CDT 10/23/2024 2:[address] Perez [facility] LAB URINE ORDERABLE S Final Result Performing Organization Address [facility] de Phone Number HOEP LAGU[place]S [address] [address] [place] [address] from Last 3 Months Insurance [facility] CHOICE PLUS Care Teams Director Family Relationship Specialty Start Date End Date Tara Perez DNP [address] [place] [address] PCP - General Family Medicine 10/12/24
--- OUTSIDE RECORDS SUMMARY | 2024-11-28 19:54 | XMS_ITS | Clinical Summary ---
Author Organization [facility] Address [address] [place] [address] Phone Care Team Providers Care Ethylbenzene Converter Operator Name Role Phone Unavailable Primary Care Provider [...] Comments Blood Pressure 103/57 06/18/2021 1:02 PM ROOFING MACHINE OPERATOR Pulse 89 06/18/2021 1:02 PM ROOFING MACHINE OPERATOR Temperature 37.1 C (98.7 F) 06/18/2021 1:02 PM ROOFING MACHINE OPERATOR Respiratory Rate 18 06/18/2021 1:02 PM ROOFING MACHINE OPERATOR Oxygen Saturation 98% 06/18/2021 1:02 PM ROOFING MACHINE OPERATOR Inhaled Oxygen Concentration - - Weight 90.7 kg (200 lb) 06/18/2021 1:02 PM ROOFING MACHINE OPERATOR Height 177.8 cm (5' 10) 06/18/2021 1:02 PM ROOFING MACHINE OPERATOR Body Mass Index 28.7 06/18/2021 1:02 PM ROOFING MACHINE OPERATOR Plan of Treatment Upcoming Encounters Date Type Department Care Team (Late st Contact Info) Description 12/05/2024 10:30 AM CDT Office Visit [facility] Endocrinology [address] [place] [address] Lucie Kimble MD [address] [place] [address] Health Maintenance Due Date Last Done Comments DTAP/TDAP/TD VACCINES (1 - Tdap) 2009 HEPATITIS B VACCINES (1 of 3 - 19+ 3-dose series) 2009 HPV/Cotest (21-29) 2011 CERVICAL CANCER SCREENING 2020 HPV/Cotest (30-65) 2020 PAP SMEAR 2020 INFLUENZA VACCINE (#1) 2024 HPV VACCINES Aged Out No longer eligi ble based on patient's age to complete this topic Insurance [employer] CHOICE POS II [facility] [email or web address] [facility] OA PLUS [facility] [id number] * Guarantor: [employer] Account Type Relation to Patient Date of Phone Billing Address Corporate Employer ATTN: LILIAN VELÁZQUEZ [address] [address]
--- OUTSIDE RECORDS SUMMARY | 2024-11-28 19:54 | XMS_ITS | Encounter Summary ---
Author Organization [facility] Healthcare Address [address] [place] [address] Care Team Providers Care Compliance Specialist Name Role Phone Tara Perez DNP Primary Care Provi cielo Encounter Details Date Type Department Care Team (Late st Contact Info) Description 10/23/2024 Results Follow-Up [facility] Medical Group Family Medicine [address] [place] [address] [address] [place] [address] [place] [address] Urinalysis reflex to microscopic and culture Urine, clean voided, Urinalysis, microscopic only, Thyroid Function [place], Additional followed-up results: 7 Social History Tobacco [...] on file 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 Gender Identity Not on file Sexual Orientation Not on file documented as of this encounter Plan of Treatment Scheduled Orders Name Type Priority Associated Diagnoses Orde r Schedule Vitamin D 25 hydroxy Lab Routine Vitamin D deficiency Expected: 01/22/2025 (Approximate), Expires: 10/23/2025 documented as of this encounter Visit Diagnoses Diagnosis Vitamin D deficiency- Primary documented in this encounter Care Teams Compliance Specialist Relationship Specialty Start Date End Date Tara Perez DNP [address] [place] [address] PCP - General Family Medicine 10/12/24 documented as of this encounter
--- OUTSIDE RECORDS SUMMARY | 2024-11-28 19:54 | XMS_ITS | Encounter Summary ---
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
--- OUTSIDE RECORDS SUMMARY | 2024-11-28 19:54 | XMS_ITS | Referral Summary ---
Author Organization [facility] Address [address] [place] [address] Care Team Providers Care Home Therapy Teacher Name Role Phone Tara Perez DNP Primary Care Provi cielo Encounters Date Type Department Care Team Description 11/20/2024 Results Follow-Up [address] [place] [address] Tara Perez DNP Thyroid peroxidase antibody (TPO) 11/17/2024 E-Visit [address] [place] [phone] Tara Perez DNP Referral Correction 11/15/2024 11:33 AM CDT - 11/15/2024 11:59 PM CDT Hospital Encounter [address] [address] Thyroid disorder screen; Abnormal thyroid ultrasound Discharge Disposition: Discharge to home or self care 11/15/2024 11:30 AM CDT Lab [facility] Medical Group Outpatient Lab at [address] [phone] 11/14/2024 9:30 AM CDT Office Visit [address] [place] [phone] Tara Perez DNP Encounter to discuss test results (Primary Dx); Multiple thyroid nodules; Abnormal thyroid ultrasound; Class 1 obesity without serious comorbidity with body mass index (BMI) of 34.0 to 34.9 in adult, unspecified obesity type 11/06/2024 Results Follow-Up [address] [place] [address] Tara Perez DNP US Thyroid 10/25/2024 7:10 AM CDT - 10/25/2024 11:59 PM CDT Hospital Encounter [address] [place] [address] Enlarged thyroid Discharge Disposition: Discharge to home or self care 10/23/2024 Results Follow-Up [address] [place] [address] Tara Perez DNP Urinalysis reflex to microscopic and culture Urine, clean voided, Urinalysis, microscopic only, Thyroid Function [place], Additional followed-up results: 7 10/23/2024 9:21 AM CDT - 10/23/2024 11:59 PM CDT Hospital Encounter [address] [address] Thyroid disorder screen; Annual physical exam; Encounter for long-term (current) use of medications; Lipid screening; Screening for diabetes mellitus; Encounter for vitamin deficiency screening Discharge Disposition: Discharge to home or self care 10/23/2024 9:30 AM CDT Lab [facility] Outpatient Lab at [address] [address] Annual physical exam (Primary Dx) 10/20/[address] [place] [phone] Tara Perez DNP Med Refill 10/12/2024 9:30 AM CDT Office Visit [address] [place] [phone] Tara Perez DNP Annual physical exam (Primary [...] ENT, Dr. Baca Had CT yesterday at [facility] Sign release of information to obtain records [...] on calories. Most people should eat between 7406-9386 calories to lose weight. Goal BMI is less than 30. A healthy BMI is considered between 19-25. Decrease your carbohydrate intake to less than 150 grams per day if possible and increase protein to help with hunger. Increase activity to 30 min 4-5 days a week of moderate aerobic activity and add strength training 2 times weekly, as tolerated. Consider using [employer] salvatore to track diet and exercise habits daily. Consider trying Weight Watcher program to make dietary changes. Visit www.dietaryguidelines.gov, www.myplate.gov, or www.health.gov for more dietary information and tips. Visit www.Catapulter or www.Spotlight At Night.Silversky for online csr covered by health insurance. If you need further help with weight loss please let me know. I would be happy to help. Start with asking your insurance company what medications they provide coverage for. Check with your insurance to see if they authorize dietitian services with www.Catapulter Assessment & Plan (10/12/2024 12:27 PM CDT): Your BMI is elevated. Try to cut back on calories. Most people should eat between 4095-0334 calories to lose weight. Goal BMI is less than 30. A healthy BMI is considered between 19-25. Decrease your carbohydrate intake to less than 150 grams per day if possible and increase protein to help with hunger. Increase activity to 30 min 4-5 days a week of moderate aerobic activity and add strength training 2 times weekly, as tolerated. Consider using [employer] salvatore to track diet and exercise habits daily. Consider trying Weight Watcher program to make dietary changes. Visit www.dietaryguidelines.gov, www.myplate.gov, or www.health.gov for more dietary information and tips. Visit www.Catapulter or [employer] for online csr covered by health insurance. If you need further help with weight loss please let me know. I would be happy to help. Start with asking your insurance company what medications they provide coverage for. Check with your insurance to see if they authorize dietitian services with www.Catapulter Some medications to ask about include phentermine, Qsymia, Contrave, Xenical, Wegovy, Zepbound. Bilateral impacted cerumen 10/12/2024 Assessment & Plan (10/12/2024 12:28 PM CDT): Use Debrox drops as prescribed Chronic sinusitis 10/05/2024 Assessment & Plan (10/12/2024 12:25 PM CDT): Managed by ENT, Dr. Baca Had CT yesterday at [facility] Sign release of information to obtain records Take cetirizine 10 mg daily Use Flonase daily Hypertrophy of nasal turbinates 10/05/2024 Assessment & Plan (10/12/2024 12:25 PM CDT): Managed by ENTDr. 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 A cutoff of <1.8 IU/mL may be more suitable for the detection of potential thyroglobulin antibody (TgAb) interference in thyroglobulin immunoassays. The thyroglobulin antibody testing method is an immunoenzymatic assay manufactured by [employer] and performed on the Does[employer]Make[employer] DXI 800. Values obtained from different assay methods or kits may be different and cannot be used interchangeably. The results cannot be interpreted as absolute evidence for the presence or absence of malignant disease. Test Performed by: [facility] [address] [place] [address] [employer] Support Specialist: Grayson Torres Ph.D.; CLIA# [id number] Blood 11/15/2024 11:3 3 AM CDT 11/15/2024 9:37 PM CDT [facility] BLOOD ORDERABLE S Final Result Performing Organization Address City/[facility] Co de Phone Number HOPE LAGUNAS [address] [address] [place] [address] [place] ref Lab * Thyroid peroxidase antibody (TPO) (11/15/2024 11:33 AM CDT) Anti Thyroid Peroxidase <30 <=34 IUnits/mL Comment: ATPO Interpretive Data Results may be up to 28% higher in patients receiving Itraconazole. Current interpretive data was last revised 2020. Testing performed by: [facility], [address] [place] [address] Blood 11/15/2024 11:3 3 AM CDT 11/16/2024 10:02 AM CDT Tara Perez [facility] LAB BLOOD ORDERABLE S Final Result Performing Organization Address City/[facility]/ZIP Co de Phone Number MLNADIYA LAGUNAS [address] [address] Department [place] [address] * US Thyroid (10/25/2024 7:43 [...] Cesar Lamar D.O. AP: AP Report ID: [id number] Reading Location: [id number] Procedure Note Willard Cesar, DO - 11/04/2024 [...] Cesar Lamar D.O. AP: ARLEN Report ID: [id number] Reading Location: [place] [address] Tara Perez [facility] IMG US PROCEDURES F inal [...] 10/23/2024 6:32 PM CDT us Tara Perez [facility] LAB BLOOD ORDERABLE S Final Result HOPE [address] [facility] Department [place] [address] * Differential, auto (10/23/2024 9:39 AM CDT) Neutrophil abs 5.10 1.50 - 6.50 K/cumm Imm gran abs 0.03 0.00 - 0.10 K/cumm [facility] Lymphocyte abs 1.78 0.80 - 3.30 K/cumm [facility] Monocyte abs 0.57 0.20 - 0.80 K/cumm [facility] Eosinophil abs 0.19 0.00 - 0.50 K/cumm [facility] Basophil abs 0.04 0.00 - 0.10 K/cumm [facility] Neutrophil pct 66.1 % [facility] Comment: Interpretive Data Percent cell count reference ranges are not reported, since discordance with absolute values may lead to misinterpretation of CBC data. Current Interpretive Data was last revised on 2017. Imm gran pct 0.4 % [facility] Comment: Interpretive Data Percent cell count reference ranges are not reported, since discordance with absolute values may lead to misinterpretation of CBC data. Current Interpretive Data was last revised on 2017. Lymphocyte pct 23.1 % [facility] Comment: Interpretive Data Percent cell count reference ranges are not reported, since discordance with absolute values may lead to misinterpretation of CBC data. Current Interpretive Data was last revised on 2017. Monocyte pct 7.4 % [facility] Comment: Interpretive Data Percent cell count reference ranges are not reported, since discordance with absolute values may lead to misinterpretation of CBC data. Current Interpretive Data was last revised on 2017. Eosinophil pct 2.5 % [facility] Comment: Interpretive Data Percent cell count reference ranges are not reported, since discordance with absolute values may lead to misinterpretation of CBC data. Current Interpretive Data was last revised on 2017. Basophil pct 0.5 % [facility] Comment: Interpretive Data Percent cell count reference ranges are not reported, since discordance with absolute values may lead to misinterpretation of CBC data. Current Interpretive Data was last revised on 2017. Blood 10/23/2024 9:39 AM CDT 10/23/2024 5:43 PM CDT Tara Perez [facility] LAB BLOOD ORDERABLE S Final Result Performing Organization Address City/[facility]/ZIP Co de Phone Number HOPE LAGUNAS [address] [address] [facility] [place] [address] * Thyroid Function [place] (10/23/2024 9:39 AM CDT) Pathologist [facility] TSH 1.70 0.30 - 4.20 mcIUnit/mL Blood 10/23/2024 9:39 AM CDT 10/23/2024 5:43 PM CDT Tara Perez [facility] LAB BLOOD ORDERABLE S Final Result Performing Organization Address [facility] de Phone Number HOPE LAGUNAS [address] [address] [facility] [place] [place] [address] * (ABNORMAL) CBC with auto differential (10/23/2024 9:39 AM CDT) Pathologist [facility] WBC 7.71 3.80 - 9.90 K/cumm Hgb [...] CDT 10/23/2024 5:43 PM CDT Tara Perez [facility] LAB BLOOD ORDERABLE S Final Result Performing Organization Address [facility] Co de Phone Number HOPE LAGUNAS [address] [address] [place] [place] [address] * Thyroid peroxidase antibody (TPO) (10/23/2024 9:39 AM CDT) Pathologist [facility] Anti Thyroid Peroxidase <30 <=34 IUnits/mL Comment: ATPO Interpretive Data Results may be up to 28% higher in patients receiving Itraconazole. Current interpretive data was last revised 2020. Testing performed by: [facility], [address] [place]., [address] Blood 10/23/2024 9:39 AM CDT 10/24/2024 10:26 AM CDT Tara Perez [facility] LAB BLOOD ORDERABLE S Final Result Performing Organization Address [facility] Co de Phone Number MLNADIYA LAGUNAS [address] [address] Department [place] [address] * (ABNORMAL) Vitamin D 25 hydroxy (10/23/2024 9:39 AM CDT) Pathologist [facility] Vitamin D 25-OH 16(L) 30 - 80 ng/mL Blood 10/23/2024 9:39 AM CDT 10/23/2024 5:43 PM CDT Tara Perez [facility] LAB BLOOD ORDERABLE S Final Result Performing Organization Address City/[facility] Co de Phone Number MLNADIYA LAGUNAS [address] [address] [place] [place] [address] * Hemoglobin A1c (10/23/2024 9:39 AM CDT) Pathologist [facility] Hgb A1C 5.3 4.0 - 5.6 % Estimated Average Glucose 105 mg/dL [facility] Comment: The ADA recommends reporting an estimated Average Glucose (eAG) with all Hemoglobin A1c results using the equation derived from a study of 507 normal and diabetic adults. Minority populations were underrepresented and children were not included. (Diabetes Care 31:9780-6728, 2008). The eAG is not equivalent to a fasting glucose. Blood 10/23/2024 9:39 AM CDT 10/23/2024 5:43 PM CDT us Tara Riverajuanita Perez [facility] LAB BLOOD ORDERABLE S Final Result HOPE LAGU[place]S [address] [address] Department [place] [address] * Lipid panel (10/23/2024 9:39 AM CDT) [...] AM CDT 10/23/2024 5:43 PM CDT [facility] LAB [place]LOOD [place] [address] [address] Department [place] [address] * (ABNORMAL) Comprehensive metabolic panel (10/23/2024 9:39 [...] AM CDT 10/23/2024 5:43 PM CDT [facility] BLOOD ORDERABLE S Final Result Performing Organization Address [facility] de Phone Number HOPE LAGUNAS [address] [address] [place] [address] * Thyroglobulin antibodies (10/23/2024 9:21 AM CDT) Anti-thyroglobulin <1.8 <4.0 IUnits/mL [facility] Comment: ADDITIONAL INFORMATION PLEASE NOTE: The given thyroglobulin antibody (TgAb) reference cutoff of <4.0 IU/mL is for the evaluation of autoimmune thyroiditis. A cutoff of <1.8 IU/mL may be more suitable for the detection of potential thyroglobulin antibody (TgAb) interference in thyroglobulin immunoassays. The thyroglobulin antibody testing method is an immunoenzymatic assay manufactured by [employer] and performed on the [employer] DXI 800. Values obtained from different assay methods or kits may be different and cannot be used interchangeably. The results cannot be interpreted as absolute evidence for the presence or absence of malignant disease. Test Performed by: [place] [address] [employer] Support Specialist: Grayson Torres Ph.D.; CLIA# [id number] Blood 10/23/2024 9:21 AM CDT 10/23/2024 2:18 PM CDT Tara Riverajuanita Perez [facility] LAB BLOOD ORDERABLE S Final Result Performing Organization Address [facility] de Phone Number HOPE LAGUNAS [address] [address] [place] [address] [place] ref [facility] * (ABNORMAL) Urinalysis reflex to microscopic and culture Urine, clean voided (10/23/2024 9:21 AM CDT) Color, ur Other(A) Yellow Clarity, ur Turbid(A) Clear [facility] Specific gravity, ur 1.010 1.003 - 1.030 [facility] pH, urine 7.0 [facility] Comment: Interpretive Data U rine pH is affected by diet, medications, systemic acid-base disturbances, and renal tubular function. pH may affect urinary stone formation. For example, urine pH below 6.0 may help reduce the tendency for calcium phosphate stones and pH greater than 6.0 may reduce the tendency for uric acid stone formation. Source: [facility] Current Interpretive Data was last [...] Reflex to microscopic UA will be performed. [facility] Urine, clean voided 10/23/2024 9:21 AM CDT 10/23/2024 2:24 PM CDT Narrative [facility] - 10/23/2024 2:43 PM CDT Urine Collection Method->Clean Catch Tara Perez [facility] LAB MICROBIOLOGY - GENERAL ORDERABLES Final Result Performing Organization Address City/[facility] Co de Phone Number HOPE LAGNUAS [address] [address] Department [place] [address] * (ABNORMAL) Urinalysis, microscopic only (10/23/2024 9:21 AM CDT) WBC, ur NONE 0 - 5 /HPF RBC, ur >50(A) 0 - 2 /HPF [facility] Epithelial cells, squamous, ur 1-5 0 - 5 /HPF [facility] Culture Reflex Comment Reflex conditions for urine culture (WBC >10) not met. [facility] Urine, clean voided 10/23/2024 9:21 AM CDT 10/23/2024 2:24 PM CDT Tara Perez [facility] LAB URINE ORDERABLE S Final Result Performing Organization Address City/[facility] Co de Phone Number HOPE LAGUNAS [address] [address] [place] [address] from Last 3 Months Insurance [facility] CHOICE PLUS Care Teams Home Therapy Teacher Relationship Specialty Start Date End Date Tara Perez DNP [address] [place] [address] PCP - General Family Medicine 10/12/24
--- OUTSIDE RECORDS SUMMARY | 2024-11-28 19:54 | XMS_ITS | Encounter Summary ---
Author Organization [facility] Healthcare Address [address] [place] [address] Care Team Providers Care Call Center Team Leader Name Role Phone Tara Perez DNP Primary Care Provi cielo Reason for Referral * Diagnostic Imaging (Routine) - Pending Review Specialty Diagnoses / Procedures Referred By Contayo t Referred To Contact Diagnoses Abnormal thyroid ultrasound Multiple thyroid nodules Procedures US Thyroid Tara Perez DNP [address] [place] [address] [address] [place] [address] Phone: tel: fax: [facility] [address] [place] [address] Referral ID Status Reason Start Date Expiration Date V isits Requested Visits Authorized [id number] Pending Review 11/06/2024 12/06/2025 1 1 Encounter Details Date Type Department Care Team (Late st Contact Info) Description 11/06/2024 Results Follow-Up [facility] Medical Group Family Medicine [address] [facility] [address] [place] [phone] Tara Perez DNP [facility] [facility] [address] [place] [address] [place] Thyroid Social History Tobacco Use [...] on file 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 A cutoff of <1.8 IU/mL may be more suitable for the detection of potential thyroglobulin antibody (TgAb) interference in thyroglobulin immunoassays. The thyroglobulin antibody testing method is an immunoenzymatic assay manufactured by [employer] and performed on the [employer] DXI 800. Values obtained from different assay methods or kits may be different and cannot be used interchangeably. The results cannot be interpreted as absolute evidence for the presence or absence of malignant disease. Test Performed by: [address] [address] Bronc Breaker: Grayson Torres Ph.D.; CLIA# [id number] Blood 11/15/2024 11:3 3 AM CDT 11/15/2024 9:37 PM CDT us Tara Perez [facility] LAB BLOOD ORDERABLE S Final Result [facility]OPE [place]S [address] [address] Department of Laboratories [place], [place] [id number] [place] ref Lab * Thyroid peroxidase antibody (TPO) (11/15/2024 11:33 AM CDT) Anti Thyroid Peroxidase <30 <=34 IUnits/mL Comment: ATPO Interpretive Data Results may be up to 28% higher in patients receiving Itraconazole. Current interpretive data was last revised 2020. Testing performed by: [facility], [address] [place]., [address] Blood 11/15/2024 11:3 3 AM CDT 11/16/2024 10:02 AM CDT us Tara Perez [facility] LAB BLOOD ORDERABLE S Final Result Performing Organization Address City/[facility] Co de Phone Number HOPE LAGUNAS [address] [address] Department [place] [address] documented in this encounter Visit Diagnoses Diagnosis Thyroid disorder screen- Primary Screening for thyroid disorder Abnormal thyroid ultrasound Multiple thyroid nodules Nontoxic multinodular goiter documented in this encounter Care Teams Call Center Team Leader Relationship Specialty Start Date End Date Tara Perez DNP [address] [place] [address] PCP - General Family Medicine 10/12/24 documented as of this encounter
--- OUTSIDE RECORDS SUMMARY | 2024-11-28 19:54 | XMS_ITS | Encounter Summary ---
Author Organization [facility] Healthcare Address [address] [place] [address] Care Team Providers Care Silk Blocker Name Role Phone Tara Perez DNP Primary Care Provi cielo Encounter Details Date Type Department Care Team (Late st Contact Info) Description 11/20/2024 Results Follow-Up 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 [address] [place] [id number] PCP - General Family Medicine 10/12/24 documented as of this encounter
--- NOTE | 2024-11-28 19:59 | ED.GENADULT ---
HPI - General Adult General Chief complaint: Headache Stated complaint: headache Time Seen by Provider: 11/28/24 19:34 History of Present Illness HPI narrative: [age] old female presenting to the emergency department for evaluation for intermittent headache. Patient states over the last 4 5 months she has had frequent intermittent headaches. Patient does have some frontal headache with also does have some posterior headache with this. Patient states more recently she has had more frequent nausea and light sensitivity with these headaches. Patient does have ongoing sinus issues and is scheduled to have sinus surgery next week. Patient reports he did have a friend that had a brain aneurysm that so she was concerned Related Data Home Medications ?Medication ?Instructions ?Recorded ?Confirmed ?Last Taken ?Type vits 75-iron 28 mg-folic 1 pkg PO DAILY 04/27/23 12/17/23 1 Day Ago History acid 800 mcg-omega3 440 mg oral ~11/29/23 pack (One Daily ) Allergies Allergy/AdvReac Type Severity Reaction Status Date / Time No Known Allergies Allergy Verified 11/28/24 19:41 Review of Systems Review of Systems: All systems reviewed & are unremarkable except as noted in HPI and below PMFSH Past Medical History Medical History HSV (herpes simplex virus) anogenital infection Obesity (BMI 30-39.9) Seasonal allergies Surgical History Surgical History [place] teeth removed Family History Family History Grandparent Diabetes mellitus Maternal grandmother Hypertension Maternal grandmother Cerebrovascular accident Maternal grandmother Mother Crohn's disease Father Prostate carcinoma Social History Social History Smoking status: Never smoker Alcohol intake: current Substance use: never Do You Feel Safe in your Home?: Yes Lack of Transportation: No Lack of Food: Never True Current Housing: I Have Housing Concerned About Future Housing: No Difficulty Paying Gas/Electric Bills: No Difficulty Paying for Meds: No Currently Unemployed: No Education: Bachelor's Degree Difficulty w/ Childcare or Family Care: No Living arrangements: with family Occupation/Education: occupation Gender identity (if verbalized by the patient): Female Sexual Orientation (if Verbalized by the Patient): Straight or Heterosexual Spiritual care concerns: No (Muslim) Agree to blood products: Yes Exam Narrative: APPEARANCE: Well appearing, no pain, no distress, well-nourished. HEAD: normocephalic, atraumatic. EYES: PERRLA/EOMI, conjunctivae clear. NOSE: Normal no drainage EARS:TMS clear with good light reflex. THROAT: Pharynx clear, no exudate. NECK: Supple. No adenopathy, no masses. RESPIRATORY: Airway patent, respirations nonlabored. Clear to auscultation bilaterally, no rales, rhonchi, wheezing. CARDIOVASCULAR: Regular rate and rhythm without murmurs rubs or gallops. ABDOMINAL: Soft, nontender, nondistended, normal bowel sounds MUSCULOSKELETAL: Moves all extremities. Strength/ROM intact, No edema, No calf tenderness. NEURO: Alert. Cranial nerves II through XII intact. Grossly intact SKIN: Warm, dry. Normal Color Course Vital Signs Vital signs: Vital Signs Temperature 97.4 F L 11/28/24 19:14 Pulse Rate 81 11/28/24 19:14 Respiratory Rate 16 11/28/24 19:14 Blood Pressure 124/71 11/28/24 19:14 Pulse Oximetry 99 11/28/24 19:14 Oxygen Delivery Room Air 11/28/24 19:14 Temperature 97.4 F L 11/28/24 19:14 Pulse Rate 81 11/28/24 19:14 Respiratory Rate 16 11/28/24 19:14 Blood Pressure 124/71 11/28/24 19:14 Pulse Oximetry 99 11/28/24 19:14 Oxygen Delivery Room Air 11/28/24 19:14 Medical Decision Making [facility] Narrative Medical decision making narrative: 34-year-old female present to the emergency department for evaluation for intermittent headache. Patient's head CT was negative for acute intracranial abnormality. Patient was treated with IV fluids, IV Compazine and IV Benadryl. Patient did feel significantly improved. With a negative head CT additional IV Toradol was used. Do suspect migraine headache as a known etiology for her symptoms. Low concern for intracranial abnormality. Patient's symptoms may also be secondary to her chronic sinus issues. Patient was advised to have close follow-up with her primary care physician. All questions concerns were addressed. Differential Diagnosis Differential Diagnosis: Sinus infection, sinusitis, allergies, migraine, intracranial abnormality Vital Signs Vital Signs: Vital Signs Temperature 97.4 F L 11/28/24 19:14 Pulse Rate 81 11/28/24 19:14 Respiratory Rate 16 11/28/24 19:14 Blood Pressure 124/71 11/28/24 19:14 Pulse Oximetry 99 11/28/24 19:14 Oxygen Delivery Room Air 11/28/24 19:14 Temperature 97.4 F L 11/28/24 19:14 Pulse Rate 81 11/28/24 19:14 Respiratory Rate 16 11/28/24 19:14 Blood Pressure 124/71 11/28/24 19:14 Pulse Oximetry 99 11/28/24 19:14 Oxygen Delivery Room Air 11/28/24 19:14 Imaging Data Radiologist's impression: Impressions Head CT 11/28/24 20:51 IMPRESSION: No acute intracranial findings. Discharge Plan Discharge Clinical Impression: Headache Patient Disposition: Home Condition: Stable Instructions: Antibiotic Form, Migraine Headache (ED) Additional Instructions: Have close follow-up with your primary care physician. If you have any worsening symptoms then please call or return to the emergency department. Patient Language: Lithuanian Prescriptions: No Action One Daily [id number] mg-mcg-mg combo pack 1 pkg PO DAILY estradiol [Estrace] 0.01 % (0.1 mg/gram) cream 1 appful vaginal DAILY Qty: 42.5 0RF Rx Instructions: apply small amount to affected area nightly fluconazole 150 mg tablet 150 mg PO ONCE Qty: 2 0RF Rx Instructions: as a single dose, repeat in three days if symptoms persist nitrofurantoin monohyd/m-cryst [Macrobid] 100 mg capsule 100 mg PO Q12H 5 Days Qty: 10 0RF Rx Instructions: must administer with a meal/food triamcinolone acetonide 0.1 % cream 1 applic topical BID PRN (Reason: itching) Qty: 30 0RF Follow-up/Referrals: PHYSICIAN NOT ON STAFF,NONSTAFF [Primary Care Provider] -
[2024-11-28] MEDS: PROCHLORPERAZINE EDISYLATE 10 MG/2 ML VIAL IV PUSH (20:07)
[2024-11-28] MEDS: diphenhydrAMINE HCl INJ 50 MG/ML VIAL 25 MG IV PUSH (20:08)
[2024-11-28] MEDS: LACTATED RINGERS 1,000 ML 999 ML IV CONT (20:09)
[2024-11-28] MEDS: KETOROLAC 15 MG/ML VIAL (*BKC) IV PUSH (21:11)
== END 2024-11-28 21:33 | disposition home or self-care (01) ==
PROVIDERS: Emergency Provider Emergency Medicine
DX: R51.9 Headache, unspecified (principal)
CPT/HCPCS: 70450; 96361; 96374; 96375; 99284; J0780; J1200; J1885; J7120